=== PATIENT | male | born 1970 | race Caucasian/White ===

== ENCOUNTER 2022-04-13 03:27 | Emergency (ER) | payer MEDICAID, SELFPAY ==
[2022-04-13] VITALS (20 sets, daily range): BP systolic 126–157; BP diastolic 79–96; PULSE 73–99; RESP 8–21; TEMP 36.8–37; O2SAT 95–99
--- NOTE | 2022-04-13 03:30 | DI.CT_ITS ---
Exam(s) CT HEAD WO EXAM: CT HEAD WO CLINICAL HISTORY: seizure, head injury frontal scalp. TECHNIQUE: Imaging Protocol: Axial computed tomography images with coronal and sagittal reformatted images were created and reviewed COMPARISON: No exams were available for comparison FINDINGS: Ventricles and Extra axial spaces: Normal in size and morphology for the patient's age. Hemorrhage: None. Cerebral parenchyma: No acute territorial infarct. Midline shift: None. Brainstem/Cerebellum: Normal. Calvarium: Normal. Bilateral zygomatic arch depression fractures which appear old. Visualized Paranasal sinuses/Mastoids: Marked mucosal thickening with near complete opacification of the left maxillary sinus. There is mucosal thickening in the remaining visualized paranasal sinuses with sparing of the frontal sinuses. The mastoid air cells are clear. Soft Tissues: There is soft tissue swelling over the frontal bone. IMPRESSION: No acute intracranial process. RADIATION DOSE DELIVERED: 813.61mGy.cm Total DLP DATA REPOSITORY: All CT scans at this facility are submitted to the National Radiology Data Registry (NRDR) Dose Index Registry (DIR) with the [employer] ([employer]). RADIATION OPTIMIZATION: All CT scans at this facility use at least one of these dose optimization te chniques: automated exposure control; mA and/or kV adjustment per patient size (includes targeted exa ms where dose is matched to clinical indication); or iterative reconstruction.
--- NOTE | 2022-04-13 03:45 | ED.GENADUL_ITS ---
Discharge Plan Disposition Patient Disposition: HOME Condition: Improving Discharge Details Chief Complaint: DrugWithdr/MAT Clinical Impression: Head injury ED Provider: Arvind Munoz Home Meds and New Rx's Prescriptions: No Action buprenorphine-naloxone [Suboxone] 8-2 mg Tablet, Sublingual 2 tab SUBLINGUAL DAILY Discharge Instructions Instructions: Head Injury (ED) Additional Instructions: Please follow-up with primary care physician. Please return to the emergency department he develop worsening symptoms such as headache nausea vomiting symptoms withdrawal or recurrent seizures. Medical Decision Making 51-year-old male history of polysubstance abuse, alcohol abuse and prior opiate abuse, presents after 2 seizures today, prior history of alcohol withdrawal seizures, last drink earlier this evening, sustained superficial abrasion to frontal scalp, also endorses missing multiple doses of his Suboxone. Patient is alert and oriented moving all extremities, no focal deficits, normal speech, hemodynamically stable, no tremors or tachycardia however given prior history of alcohol withdrawal seizure must consider recurrent alcohol withdrawal seizure versus less likely epilepsy versus less likely opioid withdrawal, must also consider primary intoxication with mechanical fall, given multiple seizures in the course of the day as well as head trauma will obtain CT head to assess for intracranial hemorrhage edema or skull fracture, will also obtain basic labs, fluids benzodiazepine, will dose Suboxone here. Disposition pending reassessment. Patient Dors is he lives locally with his girlfriend has a safe place to stay. If patient is neurologically intact with negative work-up will be discharged home with resources 5: 10 patient verbally aggressive with staff. Demanding of nursing staff. Redirectable at bedside. Awaiting CT results for disposition. Patient is alert and oriented, clinically sober, no seizure activity in the department 6: 40 patient resting comfortably no acute distress no tremors no tachycardia, no diaphoresis, patient is clinically sober. Labs and imaging unremarkable. Chronic appearing facial injuries. Patient be discharged home. HPI General Date/Time Provider Initiated Documentation: 04/13/22 03:39 . HPI Narrative: 51-year-old male history of polysubstance abuse, history of prior alcohol withdrawal with alcohol withdrawal seizures, presents after having 2 seizures today the last of which occurred approximately 1 hour ago, fell from standing hitting his frontal scalp. Superficial abrasion to scalp hemostatic, patient does endorse drinking 2 beers this evening, also endorses missing several days of his Suboxone. Denies blood thinner use. Denies other injuries. Related Data Home Medications Medication Instructions Recorded Confirmed buprenorphine 8 mg-naloxone 2 mg 2 tab sublingual DAILY 04/13/22 04/13/22 sublingual tablet Allergies Allergy/AdvReac Type Severity Reaction Status Date / Time No Known Allergies Allergy Unverified 04/13/22 03:43 General Stated Complaint: DrugWithdr/MAT ADRIAN: 2 Review of Systems Narrative: Review of Systems Constitutional: negative Eyes: negative ENT: negative Cardiovascular: negative Respiratory: negative Gastrointestinal: negative : negative Musculoskeletal: negative Skin: Abrasion to scalp Neurologic: Seizure Psych: negative PFSH All Active Problems (Updated 04/13/22 @ 06:41 by Arvind Munoz MD) Head injury (Acute) Social History Smoking/Tobacco Use Status: Current every day Tobacco Type: cigarettes Smoking risk assessment performed?: Yes Alcohol Intake: current Alcohol Intake frequency: 3 or more drinks per day Drug use: Daily Substance use type: crack/cocaine Do you feel safe at home: Yes Do you feel safe in your relationship?: Yes Exam Narrative Exam Narrative: Physical Examination General: alert, awake, cooperative, resting comfortably, no acute distress HEENT: normocephalic, 6 cm superficial linear abrasion to frontal scalp hemostatic no foreign body not gaping; PERRL, EOM intact, conjunctiva normal; no nasal discharge; moist mucous membranes, oral and pharyngeal mucosa normal, tolerating secretions Neck: supple, trachea midline; full ROM Chest: normal to inspection Respiratory: normal respiratory effort, speaking in full sentences, clear to auscultation, no wheezing, rales or rhonchi Cardiac: regular rate, regular rhythm, S1S2 intact, no murmurs rubs or gallops GI: abdomen soft, non-tender, non-distended; no palpable mass or hepatosplenomegaly Skin: no lesions, rashes or trauma appreciated Neuro: AAOx3, normal speech, moving all extremities, 5/5 upper and lower extremity strength Extremities: No deformity Psych: Appropriate mood and affect Course Vital Signs Vital signs: Vital Signs Temperature 37 C 04/13/22 03:30 Pulse 77 04/13/22 03:30 Respiratory Rate 16 04/13/22 03:30 Blood Pressure 140/84 04/13/22 03:30 Pulse Oximetry 98 04/13/22 03:30 Temperature 37 C 04/13/22 03:30 Temperature Source Temporal Artery Scan 04/13/22 03:30 Pulse 77 04/13/22 03:30 Respiratory Rate 16 04/13/22 03:30 Respiratory Effort Non-Labored 04/13/22 03:30 Blood Pressure 140/84 04/13/22 03:30 Blood Pressure Position Supine 04/13/22 03:30 Pulse Oximetry 98 04/13/22 03:30 Oxygen Delivery Method Room Air 04/13/22 03:30 Oxygen Flow Rate 0 04/13/22 03:30 Pain Level 9 04/13/22 03:30 PAWSS Have you Been Recently Intoxicated or Drunk Within the Last 30 days?: Yes Have you Ever Experienced Previous Episodes of Alcohol Withdrawal?: Yes Have you ever Experienced Withdrawal Seizures?: Yes Have you ever Experienced Delirium Tremens(DT)s?: Yes Have you ever undergone Alcohol Rehabilitation Treatment (i.e, inpt ot outpatient treatment programs)?: Yes Have you ever Experienced Blackouts?: Yes Have you ever Combined Alcohol with other Downers within the last 90 days?: Yes Have you ever Combined Alcohol with any other Substance of Abuse during the last 90 days?: Yes Positive Blood Alcohol level on Presentation? [PCS.BAL]: Yes Evidence of Increased Autonomic Activity (i.e. HR>120, tremor, sweating, agitation, nausea)?: Yes Result: 10
[2022-04-13] MEDS: Normal Saline 1,000 ML 1000 ML IV (03:52)
[2022-04-13] MEDS: LORazepam 2 MG/ML VIAL 1 MG IVP ×2 (03:52→05:04)
[2022-04-13] MEDS: Buprenorphine/Naloxone 8 mg/2 mg FILM 1 EACH SL (03:52)
[2022-04-13 03:53] LABS: Abs Immature Grans 0.04 10^3/uL (0.0-0.06); Absolute Basophil Count 0.01 10^3/uL (0.0-0.2); Absolute Eosinophil Count 0.09 10^3/uL (0.0-0.7); Absolute Lymphocyte Count 1.81 10^3/uL (1.2-3.4); Absolute Monocyte Count 0.63 10^3/uL (0.1-0.8); Absolute Neutrophil Count 3.91 10^3/uL (1.2-6.7); Basophils % 0.2; Eosinophils % 1.4; HCT 38.3 % (40.0-50.0); HGB 12.9 g/dL (13.5-17.5); Immature Grans % 0.6; Lymphocytes % 27.9; MCH 30.6 pg (27.0-33.0); MCHC 33.7 % (32.0-36.0); MCV 91 fL (80-95); MPV 9.8 fL (8.0-11.0); Monocytes % 9.7; Neutrophils % 60.2; Platelet Count 205 10^3/uL (130-400); RBC 4.22 10^6/uL (4.36-5.78); RDW 13.6 % (11.8-14.1); RDW-SD 43.8 fL; WBC 6.49 10^3/uL (4.4-10.8)
[2022-04-13 04:13] LABS: ALT 283 U/L (16-63); AST 225 U/L (15-37); Alkaline Phosphatase 64 U/L (46-116); Anion Gap 11.7 mmol/L (3-11); BUN 10 mg/dL (7-18); Bilirubin, Total 0.2 mg/dL (0.2-1.0); CO2 30.3 mmol/L (21.0-32.0); CREATININE 0.8 mg/dL (0.70-1.30); Calcium 8.2 mg/dL (8.5-10.1); Chloride 100 mmol/L (98-107); Glucose 137 mg/dL (74-106); Potassium 3.1 mmol/L (3.5-5.1); Sodium 142 mmol/L (136-145); Total Protein 7.1 g/dL (6.4-8.2)
[2022-04-13] MEDS: Ondansetron 4 MG/2 ML VIAL (06:00)
--- NOTE | 2022-04-13 06:33 | DI.VRAD_ITS ---
PROCEDURE INFORMATION: Exam: CT Head Without Contrast Exam date and time: 04/13/2022 4:12 AM Age: 51 years old Clinical indication: Injury or trauma; Fall; Blunt trauma (contusions or hematomas); With loss of consciousness; Not specified; Injury date: 04/13/22; Injury details: Seizure, head injury frontal scalp TECHNIQUE: Imaging protocol: Computed tomography of the head without contrast. Radiation optimization: All CT scans at this facility use at least one of these dose optimization techniques: automated exposure control; mA and/or kV adjustment per patient size (includes targeted exams where dose is matched to clinical indication); or iterative reconstruction. COMPARISON: No relevant prior studies available. FINDINGS: Brain: Moderate volume loss No hemorrhage.Mild white matter disease. No mass effect. Cerebral ventricles: No ventriculomegaly. Paranasal sinuses: Mucosal thickening in the anterior paranasal sinuses greater on the left No fluid levels. Mastoid air cells: Visualized mastoid air cells are well aerated. Bones/joints: Age-indeterminate zygomatic arch and nasal bone fractures which may be chronic Soft tissues: Frontal scalp swelling IMPRESSION: No acute intracranial hemorrhage Age-indeterminate fractures as described Dictated and Authenticated by: Hal Irwin MD. Ordering:BEST Samuels MD
--- NOTE | 2022-04-13 07:05 | NUR.NOTE ---
Nursing Note: Referral given to Care Management for follow up wiith PCP for substance abuse, 1 to 2 weeks.
[2022-04-13] MEDS: Mylanta Suspension 30 ML CUP PO (07:18)
[2022-04-13] MEDS: Lidocaine 2% Viscous 15 ML CUP PO (07:18)
--- NOTE | 2022-04-13 10:26 | NUR.NOTE ---
Nursing Note: Spoke with [facility] Annabelle Rowley and she will touch base with the patient today.
== END 2022-04-13 07:15 | disposition home or self-care (01) ==
PROVIDERS: Emergency Provider Emergency Medicine; PCP Nurse Practitioner Family
DX: S00.01XA Abrasion of scalp, initial encounter (principal); F17.210 Nicotine dependence, cigarettes, uncomplicated; W18.30XA Fall on same level, unspecified, initial encounter; W22.8XXA Striking against or struck by other objects, initial encounter
CPT/HCPCS: 36415; 80053; 96361; 96374; 96375; 99284; 70450; 85025; J2060; J2405; J3490

== ENCOUNTER 2022-04-17 14:03 | Inpatient (IN) | payer MEDICAID, SELFPAY ==
[2022-04-17 14:12] VITALS: BP 131/90; PULSE 111; RESP 18; TEMP 37.2; O2SAT 98
--- NOTE | 2022-04-17 14:15 | RT.EKG_ITS ---
APPROVED REPORT Exam: Resting ECG Reason for Exam: seizure Patient Location: E HR:89 bpm ECG Measurements Heart Rate 89 AXIS RI 110 P -18 QRSd 88 QRS 68 QT 369 T 71 QTc 449 Conclusion Sinus rhythm...normal P axis, V-rate 60- 99. Sinus. Normal axis. No STEMI. I have reviewed and interpreted ECG and agree with software generated interpretation.
--- NOTE | 2022-04-17 14:37 | ED.GENADUL_ITS ---
Discharge Plan Disposition Patient Disposition: HOME Condition: Stable Discharge Details Chief Complaint: DrugWithdr/MAT Clinical Impression: Alcohol withdrawal seizure, Cerebral cavernous malformation, Homelessness Primary Care Provider: TEMI MANDUJANO ED Provider: Collette Mejía Home Meds and New Rx's Prescriptions: No Action buprenorphine-naloxone [Suboxone] 8-2 mg Tablet, Sublingual 2 tab SUBLINGUAL DAILY Medical Decision Making 1430 -- 51-year-old male with a history of alcohol abuse alcohol withdrawal seizures presents with report of seizure and fall down stairs today and request for detox. Patient was seen here 2 days ago for similar presentation and symptoms improved and given benzodiazepines and Suboxone here and was discharged home. Heart rate 110s. Patient appears disheveled but nontoxic. He demonstrates no signs of withdrawal including diaphoresis, tremors. He has a superficial laceration to his forehead but no other evidence of head trauma. No midline spinal tenderness. Moving all extremities. No focal deficits. Abdomen soft and nontender. Differential diagnosis includes seizure, electrolyte abnormality, dehydration, UTI. History and presentation does not appear consistent with PE, dissection. Will obtain screening labs, CT head and cervical spine, chest x-ray and give fluids, Ativan and a dose of his Suboxone and reassess. 1600 --labs and imaging are normal white blood cell count. Chronic elevation of LFTs. Troponin negative. Urinalysis negative for infection. UDS positive for cocaine, THC. Alcohol level 91. CT head discussed with vrad who notes: Hyperdense partially calcified lesion left temporal lobe suggestive of small cavernous malformation. It appears larger than on the patient's prior examination from 04/13/2022 suspicious for the presence of recent hemorrhage. There is no significant mass effect or shift. For further evaluation of this finding, MR correlation might be useful. [facility] consult initiated as there was report of fall today but unknown head injury. Images pushed to [facility] trauma and/or neurosurgery for review and consultation. Chest x-ray negative for acute disease and notes old clavicle fracture. Patient states he sustained a clavicle fracture 10 years ago and has no acute pain in this area. 1644 --patient states he feels he is shaking and is requesting a dose of Ativan. His vitals are within normal limits. He is not diaphoretic. We will give a dose of Ativan, IV Tylenol for headache. 1829 --discussed with [facility] neurosurgery who reviewed imaging. They had imaging on file from May [address] head from here from 04/13 and today and these findings appear stable. They do not think this is the cause of the seizures. Can be referred for follow-up with us. He has not cavernous malformation he needed elbow outpatient and for outpatient MRI. No other medication or acute recommendations. Patient reassessed and he states he still feels shaky. His hands are slightly tremulous. His heart rate has improved but remains in the 90s. Blood pressure slightly up trending to 145/90. Will admit for alcohol withdrawal. Unclear if he has actually had a seizure or if this is related to alcohol withdrawal. Patient had stated to the nurse that if he was discharged he would take a bottle of pills to kill myself . This was discussed with patient and he says he is homeless so he cannot be discharged. I feel that patient needs observation overnight to continue to monitor for potential alcohol withdrawal before evaluation by mental health. Case discussed with Dr. Mauricio who accepts patient for admission. Medical Records Medical records reviewed: Yes I reviewed the patient's medical records. Imaging Data Radiologic Study: Radiologist's impression: CT Head Without Contrast Exam date and time: 04/17/2022 3:29 PM Age: 51 years old Clinical indication: Other: Seizure, fall down stairs, R/O intracranial injury FX TECHNIQUE: Imaging protocol: Computed tomography of the head without contrast. Radiation optimization: All CT scans at this facility use at least one of these dose optimization techniques: automated exposure control; mA and/or kV adjustment per patient size (includes targeted exams where dose is matched to clinical indication); or iterative reconstruction. COMPARISON: CT HEAD WO 04/13/2022 4:12 AM FINDINGS: Brain: There is a small hyperdense partially calcified lesion centered in the left temporal lobe also seen on the patient's prior examination from 04/13/2022. It appears slightly larger on the current examination, now measuring approximately 8 mm in maximum diameter as measured on sagittal reformatted image 22 and approximately 8-9 mm on series 3, image 28. The CT appearance is suggestive of a cavernous malformation. The slight increase in size is suspicious for minimal recent/acute hemorrhage. There is no significant mass effect or shift. No other hemorrhage or hemorrhagic lesion is identified. There is no evidence of a cortical or major vascular territory infarct. There are no abnormal extra-axial collections identified. Cerebral ventricles: No significant ventricular enlargement. Paranasal sinuses: There is sinus mucoperiosteal thickening seen within the left maxillary antrum also previously noted. Mild sinus mucoperiosteal thickening is seen elsewhere. Mastoid air cells: There is no significant mastoid or middle ear opacification Bones/joints:? No acute calvarial fracture Soft tissues: No significant subcutaneous abnormality Vasculature:? No hyperdense intravascular thrombus Other findings: Orbits are unchanged IMPRESSION: Hyperdense partially calcified lesion left temporal lobe suggestive of small cavernous malformation. It appears larger than on the patient's prior examination from 04/13/2022 suspicious for the presence of recent hemorrhage. There is no significant mass effect or shift. For further evaluation of this finding, MR correlation might be useful. CT Cervical Spine Without Contrast Exam date and time: 04/17/2022 3:29 PM Age: 51 years old Clinical indication: Other: Seizure, fall down stairs, R/O intracranial injury FX TECHNIQUE: Imaging protocol: Computed tomography of the cervical spine without contrast. Radiation optimization: All CT scans at this facility use at least one of these dose optimization techniques: automated exposure control; mA and/or kV adjustment per patient size (includes targeted exams where dose is matched to clinical indication); or iterative reconstruction. COMPARISON: CT HEAD WO 04/13/2022 4:12 AM FINDINGS: Bones/joints: Bony mineralization is within normal limits. There is straightening, mild reversal of the cervical lordosis which may be positional or due to spasm. 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 There is no evidence of an acute fracture in the cervical spine. There is no decrease of vertebral body height. There is no acute or destructive bony abnormality. Discs/Spinal canal/Neural foramina: There is disc space narrowing in the cervical spine most prominent at C5-C6. There are disc osteophyte complexes spondylitic changes of the endplates, uncovertebral and facet arthropathy. There is mild narrowing of the canal at C5-C6. There is foraminal narrowing also most prominent at C5-C6 slightly greater on the right than the left Lungs: No significant airspace consolidation is identified at the lung apices Soft tissues: There is no evidence of a discrete soft tissue mass in the neck. IMPRESSION: No acute fracture. XR Chest Exam date and time: 04/17/2022 3:40 PM Age: 51 years old Clinical indication: Other: Seizure, R/O acute disease TECHNIQUE: Imaging protocol: Radiologic exam of the chest. Views: 2 views. COMPARISON: CT HEAD CERVICAL SPINE WO 04/17/2022 3:29 PM FINDINGS: Lungs: Hyperinflation. No focal consolidation. No focal consolidation. Normal pulmonary vascularity. Pleural spaces: Unremarkable. No pleural effusion. No pneumothorax. Heart/Mediastinum: Top-normal size cardiac silhouette. Vasculature: Tortuous atheromatous aorta. Bones/joints: Displaced mid to distal right clavicular fracture, partially included in field of view, non acute appearing. IMPRESSION: 1. Displaced mid to distal right clavicular fracture, partially included in field of view, non-acute appearing. Correlate with physical examination and history. 2. No focal consolidation or CHF. Lab Data Lab results reviewed: Yes I reviewed the patient's lab results. Labs: Laboratory Tests Range/Units 04/17/22 04/17/22 04/17/22 14:45 14:45 16:10 WBC (4.4-10.8) 10^3/uL 4.93 RBC (4.36-5.78) 10^6/uL 4.62 Hgb (13.5-17.5) g/dL 14.4 Hct (40.0-50.0) % 42.4 MCV (80-95) fL 92 MCH (27.0-33.0) pg 31.2 MCHC (32.0-36.0) % 34.0 RDW (11.8-14.1) % 14.1 Plt Count (130-400) 10^3/uL 246 MPV (8.0-11.0) fL 10.0 Immature Gran % 0.8 Neutrophils % 67.8 Lymphocytes % 21.5 Monocytes % 8.9 Eosinophils % 0.8 Basophils % 0.2 Nucleated RBC % (0.0-0.3) % 0.0 Absolute Neutrophils (1.2-6.7) 10^3/uL 3.34 Absolute Lymphocytes (1.2-3.4) 10^3/uL 1.06 L Absolute Monocytes (0.1-0.8) 10^3/uL 0.44 Absolute Eosinophils (0.0-0.7) 10^3/uL 0.04 Absolute Basophils (0.0-0.2) 10^3/uL 0.01 Sodium (136-145) mmol/L 139 Potassium (3.5-5.1) mmol/L 3.9 Chloride (98-107) mmol/L 103 Carbon Dioxide (21.0-32.0) mmol/L 23.7 Anion Gap (3-11) mmol/L 12.3 H BUN (7-18) mg/dL 9 Creatinine (0.70-1.30) mg/dL 0.9 Estimated GFR/1.73 m2 (mL/min/1.73m2) >= 60.00 Glucose (74-106) mg/dL 108 H Calcium (8.5-10.1) mg/dL 8.7 Magnesium (1.8-2.4) mg/dL 2.2 Total Bilirubin (0.2-1.0) mg/dL 0.4 AST (15-37) U/L 130 H ALT (16-63) U/L 304 H Alkaline Phosphatase (46-116) U/L 69 Troponin I (<or=60) ng/L < 50 Total Protein (6.4-8.2) g/dL 7.7 Albumin (3.4-5.0) g/dL 3.4 Urine Color (Yellow) Yellow Urine Clarity (Clear) Clear Urine pH (5-8) 8.5 H Ur Specific [place] (1.005-1.025) 1.020 Urine Protein (Negative) mg/dL Negative Urine Ketones (Negative) mg/dL Trace H Urine Blood (Negative) Negative Urine Nitrite (Negative) Negative Urine Bilirubin (Negative) Negative Urine Urobilinogen (Up TO 0.2) EU/dL 1.0 H Ur Leukocyte Esterase (Negative) Negative Urine Glucose (Negative) mg/dL Negative Urine Opiates Screen (Negative) Urine Methadone Screen (Negative) Ur Barbiturates Screen (Negative) Ur Tricyclics Screen (Negative) Ur Amphetamines Screen (Negative) U Benzodiazepines Scrn (Negative) Urine Cocaine Screen (Negative) Ur THC Screen (Negative) Ethyl Alcohol (<10) mg/dL 91.8 H COVID-19 Source SARS-CoV-2 (PCR) (Negative) Range/Units 04/17/22 04/17/22 16:10 17:27 WBC (4.4-10.8) 10^3/uL RBC (4.36-5.78) 10^6/uL Hgb (13.5-17.5) g/dL Hct (40.0-50.0) % MCV (80-95) fL MCH (27.0-33.0) pg MCHC (32.0-36.0) % RDW (11.8-14.1) % Plt Count (130-400) 10^3/uL MPV (8.0-11.0) fL Immature Gran % Neutrophils % Lymphocytes % Monocytes % Eosinophils % Basophils % Nucleated RBC % (0.0-0.3) % Absolute Neutrophils (1.2-6.7) 10^3/uL Absolute Lymphocytes (1.2-3.4) 10^3/uL Absolute Monocytes (0.1-0.8) 10^3/uL Absolute Eosinophils (0.0-0.7) 10^3/uL Absolute Basophils (0.0-0.2) 10^3/uL Sodium (136-145) mmol/L Potassium (3.5-5.1) mmol/L Chloride (98-107) mmol/L Carbon Dioxide (21.0-32.0) mmol/L Anion Gap (3-11) mmol/L BUN (7-18) mg/dL Creatinine (0.70-1.30) mg/dL Estimated GFR/1.73 m2 (mL/min/1.73m2) Glucose (74-106) mg/dL Calcium (8.5-10.1) mg/dL Magnesium (1.8-2.4) mg/dL Total Bilirubin (0.2-1.0) mg/dL AST (15-37) U/L ALT (16-63) U/L Alkaline Phosphatase (46-116) U/L Troponin I (<or=60) ng/L Total Protein (6.4-8.2) g/dL Albumin (3.4-5.0) g/dL Urine Color (Yellow) Urine Clarity (Clear) Urine pH (5-8) Ur Specific [place] (1.005-1.025) Urine Protein (Negative) mg/dL Urine Ketones (Negative) mg/dL Urine Blood (Negative) Urine Nitrite (Negative) Urine Bilirubin (Negative) Urine Urobilinogen (Up TO 0.2) EU/dL Ur Leukocyte Esterase (Negative) Urine Glucose (Negative) mg/dL Urine Opiates Screen (Negative) Negative Urine Methadone Screen (Negative) Negative Ur Barbiturates Screen (Negative) Negative Ur Tricyclics Screen (Negative) Negative Ur Amphetamines Screen (Negative) Negative U Benzodiazepines Scrn (Negative) Negative Urine Cocaine Screen (Negative) Positive A Ur THC Screen (Negative) Positive A Ethyl Alcohol (<10) mg/dL COVID-19 Source Nasal/Nares SARS-CoV-2 (PCR) (Negative) Negative ECG Data Attestation: I personally reviewed and interpreted this ECG (s) as follows: Interpretation: rate of 89, sinus, no stemi. HPI General Mode of arrival: ambulatory . Date/Time Provider Initiated Documentation: 04/17/22 14:14 . Limitations to Documentation: no limitations . Information obtained by: patient . HPI Narrative: Patient is a 51-year-old male with a history of alcohol abuse and alcohol withdrawal seizures who presents with report of seizure and fall downstairs today. Patient states his last alcohol drink was yesterday. He states he usually drinks 2 bottles of wine daily but had 3 beers yesterday. Patient states he would like to stop drinking alcohol and would like to go to detox. He also states he has not had his Suboxone since he was here for a seizure in the emergency department 2 days ago. Patient states his Suboxone will not be ready for pickup until [employer] opens on Tuesday. He states he has been on Suboxone for the past 5 years for history of IV opiate use. He states today he was walking at home when he became dizzy and had seizure-like activity which lasted approximately 2 minutes. He states he fell down the stairs but denies any injury at that time. He currently denies any headache, blurry vision, chest pain, shortness of breath, abdominal pain or urinary symptoms. He denies any other new Related Data Home Medications Medication Instructions Recorded Confirmed buprenorphine 8 mg-naloxone 2 mg 2 tab sublingual DAILY 04/13/22 04/17/22 sublingual tablet Allergies Allergy/AdvReac Type Severity Reaction Status Date / Time No Known Allergies Allergy Unverified 04/17/22 14:15 General Stated Complaint: DrugWithdr/MAT ADRIAN: 3 Review of Systems All systems reviewed & are unremarkable except as noted in HPI and below Constitutional Constitutional: Denies chills, Denies excessive sweating, Denies fatigue, Denies fever(s), Denies weakness and Denies weight loss Eyes Eyes: Reports system reviewed and no additional complaints, except as documented and Denies blurry vision ENT Ears, Nose, Mouth, and Throat: Denies vertigo, Denies dizziness, Denies otalgia, Denies nasal congestion, Denies sore throat and Denies throat swelling Cardiovascular Cardiovascular: Denies chest pain, Denies syncope, Denies rapid heart rate and Denies dyspnea Respiratory Respiratory: Denies chest congestion, Denies cough, Denies pain on inspiration and Denies dyspnea Gastrointestinal Gastrointestinal: Denies abdominal pain, Denies diarrhea and Denies vomiting Genitourinary Genitourinary: Denies hematuria, Denies dysuria and Denies flank pain Musculoskeletal Musculoskeletal: Denies back pain and Denies joint swelling Integumentary/Breasts Skin/Breast: Denies lesions and Denies rash Neurologic Neurologic: Denies behavioral changes, Denies confusion, Denies vertigo, Denies dizziness, Denies syncope, Denies localized weakness, Reports seizure-like activity and Denies weakness Psychiatric Psychiatric: Denies behavioral changes, Denies confusion and Denies depression Endocrine Endocrine: Denies excessive sweating and Denies fatigue Hematologic/Lymphatic Hematologic/Lymphatic: Denies easy bruising and Denies lymphadenopathy Allergic/Immunologic Allergic/Immunologic: Denies throat swelling PFSH All Active Problems (Updated 04/17/22 @ 19:15 by Collette Mejía DO) Alcohol withdrawal seizure (Acute) Cerebral cavernous malformation (Acute) Homelessness (Acute) Head injury (Acute) Medical History (Updated 04/17/22 @ 19:15 by Collette Mejía DO) Alcohol abuse Alcohol withdrawal seizure Social History Smoking/Tobacco Use Status: Current every day Tobacco Type: cigarettes Smoking risk assessment performed?: Yes Alcohol Intake: current Alcohol Intake frequency: 3 or more drinks per day Drug use: Never Substance use type: crack/cocaine Do you feel safe at home: Yes Do you feel safe in your relationship?: Yes Exam Const General: cooperative and disheveled Orientation: alert, awake and oriented x3 HENMT Head: normal to inspection Ears: hearing grossly normal bilaterally and external ears normal General nose exam: external nose normal Face and sinus: normal facial exam Mouth: oral mucosae normal Teeth and gingiva: dentition normal Throat: posterior oropharynx normal Eyes General: appearance normal, both eyes and all related structures Eyelids: eyelids normal Pupils: PERRL EOM: EOM intact bilaterally Neck Neck: normal visual inspection Lymphatic: no lymphadenopathy noted Chest Chest: normal inspection of the chest Resp Effort & Inspection: normal respiratory effort and able to speak in complete sentences Auscultation: clear to auscultation bilaterally Cardio Rate: regular rate Rhythm: regular rhythm GI Inspection: normal to inspection Palpation: soft, not firm, no guarding, no hepatosplenomegaly, no masses and nontender Auscultation: normal bowel sounds Back/Spine/Pelvis Back: no CVA tenderness Skin General skin exam: no rashes or lesions noted Neuro General: patient alert and patient awake Cognition: normal cognition Speech: speech normal Gait: normal gait Motor: muscle tone normal throughout Sensory Exam: no sensory deficits noted Extrem General: normal to inspection, full ROM and capillary refill normal Psych Appearance: grossly normal Mental Status: mental status grossly normal Speech and Movement: speech and movement normal Affect: normal affect Thought Process: normal Course Vital Signs Vital signs: Vital Signs Temperature 99.0 F 04/17/22 14:12 Pulse 111 H 04/17/22 14:12 Respiratory Rate 18 04/17/22 14:12 Blood Pressure 131/90 04/17/22 14:12 Pulse Oximetry 98 04/17/22 14:12 Temperature 99.0 F 04/17/22 14:12 Temperature Source Temporal Artery Scan 04/17/22 14:12 Pulse 111 H 04/17/22 14:12 Respiratory Rate 18 04/17/22 14:12 Respiratory Effort 04/17/22 14:15 Blood Pressure 131/90 04/17/22 14:12 Blood Pressure Position Sitting 04/17/22 14:12 Pulse Oximetry 98 04/17/22 14:12 Oxygen Delivery Method Room Air 04/17/22 14:12 Oxygen Flow Rate 0 04/17/22 14:12 Pain Level 10 04/17/22 14:12 PAWSS Have you Ever Experienced Previous Episodes of Alcohol Withdrawal?: Yes Have you ever Experienced Withdrawal Seizures?: Yes Have you ever Experienced Delirium Tremens(DT)s?: Yes Have you ever undergone Alcohol Rehabilitation Treatment (i.e, inpt ot outpatient treatment programs)?: No Have you ever Experienced Blackouts?: Yes Have you ever Combined Alcohol with other Downers within the last 90 days?: No Have you ever Combined Alcohol with any other Substance of Abuse during the last 90 days?: No Evidence of Increased Autonomic Activity (i.e. HR>120, tremor, sweating, agitation, nausea)?: Yes Result: 5
--- NOTE | 2022-04-17 14:45 | DI.RAD_ITS ---
Exam(s) XR CHEST 2V PA LATERAL EXAM: XR CHEST 2V PA LATERAL CLINICAL HISTORY: seizure, r/o acute disease. TECHNIQUE: 2D digital imaging was performed. COMPARISON: No exams were available for comparison FINDINGS: 2 views: Heart size is normal. The mediastinum is not widened. Lungs are clear. No infiltrates nor pleural effusions. Displaced right midshaft clavicle fracture noted IMPRESSION: No acute pulmonary findings. Displaced fracture right midshaft clavicle. Probably not acute DATA REPOSITORY: RADIATION DOSE DELIVERED:
--- NOTE | 2022-04-17 14:45 | DI.CT_ITS ---
Exam(s) CT HEAD CERVICAL SPINE WO EXAM: CT HEAD CERVICAL SPINE WO CLINICAL HISTORY: seizure, fall down stairs, r/o intracranial inj,fx. TECHNIQUE: Imaging Protocol: Axial computed tomography images with coronal and sagittal reformatted images were created and reviewed COMPARISON: CT CT HEAD WO from 04/13/2022 FINDINGS: BRAIN: No skull fractures. There is mucosal thickening and fluid in the left maxillary sinus. Remainder of the paranasal sinuses are clear as are the mastoid air cells. On the left side there is a partially calcified left temporal lobe lesion noted, seen on the prior st udy although slightly larger on the present study. The CT appearance is that of a probable cavernous malformation and slight increase in size is suspicious for minimal recent acute hemorrhage. There i s no significant mass effect. No shift of midline structures. No other lesion is identified. No ev idence of cortical infarct. No extra-axial fluid collections. Ventricles are not enlarged or shifted. CERVICAL SPINE: There is no evidence of fracture nor listhesis. No significant prevertebral soft tissue swelling. F acet arthropathy noted. No facet malalignment. Disc space narrowing at C5-6 noted. Also bilateral Luschka joint osteophytes at this level. No Lusc hka joint osteophytes at C6-7. There is no significant facet joint malalignment. No significant osseous lesions evident. IMPRESSION: There is a hyperdense partially calcified lesion left temporal lobe suggestive of a small cavernous m alformation, this appearing slightly larger than on the prior exam of 04/13/2022. Suspicious for pre sence of recent hemorrhage therein.. No associated new mass or shift. Follow-up MRI recommended. No evidence of cervical spine fracture, malalignment, nor acute compromise of the cervical spinal can al. RADIATION DOSE DELIVERED: 1,630.41mGy.cm Total DLP DATA REPOSITORY: All CT scans at this facility are submitted to the National Radiology Data Registry (NRDR) Dose Index Registry (DIR) with the [employer] ([employer]). RADIATION OPTIMIZATION: All CT scans at this facility use at least one of these dose optimization te chniques: automated exposure control; mA and/or kV adjustment per patient size (includes targeted exa ms where dose is matched to clinical indication); or iterative reconstruction.
[2022-04-17 15:03] LABS: Abs Immature Grans 0.04 10^3/uL (0.0-0.06); Absolute Basophil Count 0.01 10^3/uL (0.0-0.2); Absolute Eosinophil Count 0.04 10^3/uL (0.0-0.7); Absolute Lymphocyte Count 1.06 10^3/uL (1.2-3.4); Absolute Monocyte Count 0.44 10^3/uL (0.1-0.8); Absolute Neutrophil Count 3.34 10^3/uL (1.2-6.7); Basophils % 0.2; Eosinophils % 0.8; HCT 42.4 % (40.0-50.0); HGB 14.4 g/dL (13.5-17.5); Immature Grans % 0.8; Lymphocytes % 21.5; MCH 31.2 pg (27.0-33.0); MCV 92 fL (80-95); Monocytes % 8.9; Neutrophils % 67.8; Platelet Count 246 10^3/uL (130-400); RBC 4.62 10^6/uL (4.36-5.78); RDW 14.1 % (11.8-14.1); RDW-SD 46.5 fL; WBC 4.93 10^3/uL (4.4-10.8)
[2022-04-17] MEDS: LORazepam 20 MG/10 ML VIAL IVP (15:14)
[2022-04-17] MEDS: Buprenorphine/Naloxone 8 mg/2 mg FILM 2 EACH SL (15:14)
[2022-04-17] MEDS: Normal Saline 1,000 ML 1000 ML IV (15:15)
[2022-04-17 15:22] LABS: ALT 304 U/L (16-63); AST 130 U/L (15-37); Albumin 3.4 g/dL (3.4-5.0); Alkaline Phosphatase 69 U/L (46-116); Anion Gap 12.3 mmol/L (3-11); BUN 9 mg/dL (7-18); Bilirubin, Total 0.4 mg/dL (0.2-1.0); CO2 23.7 mmol/L (21.0-32.0); CREATININE 0.9 mg/dL (0.70-1.30); Calcium 8.7 mg/dL (8.5-10.1); Chloride 103 mmol/L (98-107); ETHANOL BLOOD 91.8 mg/dL (<10); Glucose 108 mg/dL (74-106); Magnesium 2.2 mg/dL (1.8-2.4); Potassium 3.9 mmol/L (3.5-5.1); Sodium 139 mmol/L (136-145); Total Protein 7.7 g/dL (6.4-8.2); Troponin I < 50 ng/L (<or=60)
--- NOTE | 2022-04-17 16:08 | DI.VRAD_ITS ---
Addendum created by Echo Gonsales MD on 04/17/2022 4:14:24 PM EDT: THIS REPORT CONTAINS FINDINGS THAT MAY BE CRITICAL TO PATIENT CARE. The findings were verbally communicated via telephone conference with aparna houston at 4:14 PM EDT on 04/17/2022. The findings were acknowledged and understood. Initial report created on 04/17/2022 4:08:25 PM EDT: PROCEDURE INFORMATION: Exam: CT Head Without Contrast Exam date and time: 04/17/2022 3:29 PM Age: 51 years old Clinical indication: Other: Seizure, fall down stairs, R/O intracranial injury FX TECHNIQUE: Imaging protocol: Computed tomography of the head without contrast. Radiation optimization: All CT scans at this facility use at least one of these dose optimization techniques: automated exposure control; mA and/or kV adjustment per patient size (includes targeted exams where dose is matched to clinical indication); or iterative reconstruction. COMPARISON: CT HEAD WO 04/13/2022 4:12 AM FINDINGS: Brain: There is a small hyperdense partially calcified lesion centered in the left temporal lobe also seen on the patient's prior examination from 04/13/2022. It appears slightly larger on the current examination, now measuring approximately 8 mm in maximum diameter as measured on sagittal reformatted image 22 and approximately 8-9 mm on series 3, image 28. The CT appearance is suggestive of a cavernous malformation. The slight increase in size is suspicious for minimal recent/acute hemorrhage. There is no significant mass effect or shift. No other hemorrhage or hemorrhagic lesion is identified. There is no evidence of a cortical or major vascular territory infarct. There are no abnormal extra-axial collections identified. Cerebral ventricles: No significant ventricular enlargement. Paranasal sinuses: There is sinus mucoperiosteal thickening seen within the left maxillary antrum also previously noted. Mild sinus mucoperiosteal thickening is seen elsewhere. Mastoid air cells: There is no significant mastoid or middle ear opacification Bones/joints: No acute calvarial fracture Soft tissues: No significant subcutaneous abnormality Vasculature: No hyperdense intravascular thrombus Other findings: Orbits are unchanged IMPRESSION: Hyperdense partially calcified lesion left temporal lobe suggestive of small cavernous malformation. It appears larger than on the patient's prior examination from 04/13/2022 suspicious for the presence of recent hemorrhage. There is no significant mass effect or shift. For further evaluation of this finding, MR correlation might be useful. PROCEDURE INFORMATION: Exam: CT Cervical Spine Without Contrast Exam date and time: 04/17/2022 3:29 PM Age: 51 years old Clinical indication: Other: Seizure, fall down stairs, R/O intracranial injury FX TECHNIQUE: Imaging protocol: Computed tomography of the cervical spine without contrast. Radiation optimization: All CT scans at this facility use at least one of these dose optimization techniques: automated exposure control; mA and/or kV adjustment per patient size (includes targeted exams where dose is matched to clinical indication); or iterative reconstruction. COMPARISON: CT HEAD WO 04/13/2022 4:12 AM FINDINGS: Bones/joints: Bony mineralization is within normal limits. There is straightening, mild reversal of the cervical lordosis which may be positional or due to spasm. 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 There is no evidence of an acute fracture in the cervical spine. There is no decrease of vertebral body height. There is no acute or destructive bony abnormality. Discs/Spinal canal/Neural foramina: There is disc space narrowing in the cervical spine most prominent at C5-C6. There are disc osteophyte complexes spondylitic changes of the endplates, uncovertebral and facet arthropathy. There is mild narrowing of the canal at C5-C6. There is foraminal narrowing also most prominent at C5-C6 slightly greater on the right than the left Lungs: No significant airspace consolidation is identified at the lung apices Soft tissues: There is no evidence of a discrete soft tissue mass in the neck. IMPRESSION: No acute fracture. Dictated and Authenticated by: Echo Gonsales MD. Ordering:DANA Murdock MD
--- NOTE | 2022-04-17 16:12 | DI.VRAD_ITS ---
PROCEDURE INFORMATION: Exam: XR Chest Exam date and time: 04/17/2022 3:40 PM Age: 51 years old Clinical indication: Other: Seizure, R/O acute disease TECHNIQUE: Imaging protocol: Radiologic exam of the chest. Views: 2 views. COMPARISON: CT HEAD CERVICAL SPINE WO 04/17/2022 3:29 PM FINDINGS: Lungs: Hyperinflation. No focal consolidation. No focal consolidation. Normal pulmonary vascularity. Pleural spaces: Unremarkable. No pleural effusion. No pneumothorax. Heart/Mediastinum: Top-normal size cardiac silhouette. Vasculature: Tortuous atheromatous aorta. Bones/joints: Displaced mid to distal right clavicular fracture, partially included in field of view, non acute appearing. IMPRESSION: 1. Displaced mid to distal right clavicular fracture, partially included in field of view, non-acute appearing. Correlate with physical examination and history. 2. No focal consolidation or CHF. Dictated and Authenticated by: Courtney Puga MD. Ordering:DANA Murdock MD
[2022-04-17 16:27] LABS: Bilirubin Negative (Negative); Blood Negative (Negative); Clarity Clear (Clear); Glucose Negative (Negative); Ketones Trace mg/dL (Negative); Leukocyte Esterase Negative (Negative); Nitrite Negative (Negative); pH 8.5 (5-8)
[2022-04-17 16:42] LABS: *AMPHETAMINES SCREEN URINE Negative (Negative); *BARBITURATES SCREEN URINE Negative (Negative); *BENZODIAZEPINES SCREEN URINE Negative (Negative); Cannabinoids THC Positive (Negative); Cocaine Screen,Urine Positive (Negative); METHADONE URINE SCREEN Negative (Negative); OPIATES URINE SCREEN Negative (Negative)
[2022-04-17 16:43] LABS: Tricyclic Antidepressants Negative (Negative)
[2022-04-17] MEDS: LORazepam 2 MG/ML VIAL 0.5 MG IVP (17:00)
[2022-04-17] MEDS: ACETAMINOPHEN 1,000 MG/100 ML BTL 400 MG IVPB (17:10)
[2022-04-17] MEDS: MAGNESIUM SULFATE 8.12 MEQ, MULTIVITAMIN 10 ML, THIAMINE 100 MG, FOLIC ACID 1 MG in Nor... 168.867 MG IV (17:16)
[2022-04-17 17:31] LABS: Source Nasal/Nares
[2022-04-17 18:23] LABS: COVID-19 PCR Negative (Negative)
--- NOTE | 2022-04-17 19:08 | HPE_ITS ---
Date of service: 04/17/22 Time of Service: 19:08 Assessment and Plan Assessment and plan (1) Alcohol abuse: Start date: 04/17/22 Assessment and plan: This is a 51-year-old gentleman who has chronic alcoholism as a problem as well as polysubstance abuse on Suboxone recently off meds and drinking having been kicked out of his sober home locally and [place], [place] where he had moved from [place], [place] to stop drinking. He is on Suboxone and appears to have missed some of these doses as well. He appeared clear to go home but threatened suicide with overdose of his medications if sent home therefore he will need to see mental health for clearance prior to discharge with the patient stating that he would voluntarily go into rehab and psychiatric inpatient care for evaluation and treatment. He will be on CIWA protocol to avoid alcohol withdrawal seizures which are reported and have happened in the past. No seizures were witnessed in the hospital. He is a full code. He will be given Nicorette gum for nicotine withdrawal. His Suboxone will be maintained. (2) Alcohol withdrawal seizure: Start date: 04/17/22 Status: Acute Assessment and plan: Reported by patient with fall prior to admission with no injury noted. No ev idence of seizure activity during his hospital evaluation but patient will be placed on CIWA protocol and seizure precautions.. (3) Suicidal ideation: Start date: 04/17/22 Status: Acute Assessment and plan: When patient was being possibly discharged home he said that he would take all of his medications to commit suicide and stated that he is actively having suicidal ideation because of his homelessness and recurrent substance abuse with alcohol and drugs. He is willing to have voluntary inpatient treatment for both. Once medically cleared mental health should be seeing the patient for evaluation for inpatient care. (4) Polysubstance abuse: Status: Chronic Assessment and plan: On Suboxone and actively using cocaine while drinking. Patient will be placed on Suboxone and monitored for complications of his polysubstance abuse though alcohol withdrawal is the most impending problematic condition. Long-term he needs continued rehabilitation and cessation of polysubstance abuse and alcohol. Prognosis poor for change. (5) Head injury: Start date: 04/17/22 Status: Acute Assessment and plan: No obvious injury from fall reported by physical exam or imaging. Patient does have chronic cerebral cavernous malformation which appears stable. Monitor clinically and should follow-up with neurosurgery and neurology long-term. (6) Cerebral cavernous malformation: Status: Chronic Assessment and plan: Reported as anatomically stable though there may be some slight changes suggesting hemorrhage by recent imaging and [facility] neurology and neurosurgery recommends follow-up as an outpatient with no acute intervention recommended. Patient is having no focal neurological findings. (7) Homelessness: Status: Chronic Assessment and plan: Patient states that he cannot return home to his mother's place and [place], [place] and he has just been kicked out of a sober home locally and [place], [place]. 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 History of Present Illness History of Present Illness Chief Complaint: Seizure with fall secondary to alcohol withdrawal Narrative: This is a 51-year-old male patient who reported to the ED complaining of alcohol seizures from withdrawal and falling down stairs. He had no obvious injury and imaging did not show a stable small cavernous malformation over his left tempora l lobe which may have had minimal hemorrhage compared to previous imaging dating back to 2011 which [facility] neurology had for review. The patient was not having active withdrawal symptoms except for slight tachycardia and possible slight tremulousness in the ED receiving Ativan. He was to be discharged home but states that he would take all of his pills if he was sent home and had suicidal ideation. He is originally from [place], [place] but has spent time in [place] and came to this part [facility] to a sober house having been now kicked out of that residence because of returning to drinking. He did have an alcohol level measured in the ED. When I saw the patient he was diaphoretic with a flattened affect but awake and not tremulous. He still was reporting suicidal ideation and did want to see mental health once medically cleared. The patient has a chaotic life on Suboxone and polysubstance abuse with poor insight. He has had previous falls with old clavicular fracture seen on imaging but no acute injuries with a stable cavernous lesion as mentioned in his left temporal lobe. Pertinent review of systems otherwise unrevealing except for patient wanting nicotine gum being a smoker and having nicotine withdrawal when in the hospital. Review of Systems Narrative: 13 point review of systems otherwise unrevealing or stable. Patient is a poor historian. [facility] All Active Problems (Updated 04/18/22 @ 13:28 by Matthew Mauricio) Suicidal ideation (Acute) Polysubstance abuse (Chronic) Alcohol withdrawal seizure (Acute) Cerebral cavernous malformation (Chronic) Homelessness (Chronic) Head injury (Acute) Medical History (Updated 04/18/22 @ 13:28 by Matthew Mauricio) Alcohol abuse Alcohol withdrawal seizure Social History Smoking/Tobacco Use Status: Current every day Tobacco Type: cigarettes Smoking risk assessment performed?: Yes Alcohol Intake: current Alcohol Intake frequency: 3 or more drinks per day Drug use: Never Substance use type: crack/cocaine Do you feel safe at home: Yes Do you feel safe in your relationship?: Yes Meds Allergies and Home Medications Allergies Allergy/AdvReac Type Severity Reaction Status Date / Time No Known Allergies Allergy Unverified 04/17/22 14:15 Home Medications Medication Instructions Recorded Confirmed Type buprenorphine 8 mg-naloxone 2 mg 2 tab sublingual DAILY 04/13/22 04/17/22 History sublingual tablet Exam Narrative Exam Narrative: General: Patient appears older than stated age, slightly anxious with flattened affect and poor eye contact. He is alert and oriented at least to person place. He gives a vague history appearing to avoid topics. HEENT: Normocephalic, face atraumatic, eyes with pupils equal and reactive to light symmetrically, extraocular movement intact and sclera anicteric. Oropharynx with dry mucosa and poor dentition. Neck: Supple without JVD. Lungs: Bronchovesicular breath sounds diffusely with fair aeration and no focalizing rales or rhonchi. No expiratory wheeze. Back: Stooped posture without CVA tenderness. Heart: Regular rate and rhythm with no appreciable murmur or gallop. Chest: Symmetric movement with out tenderness to palpation. Abdomen: Obese contour, soft and nontender to palpation with no palpable hepatosplenomegaly. Genitalia/rectal: Exam deferred. Extremities: Without clubbing, cyanosis or pitting edema. Peripheral pulses intact. Skin: Diaphoretic, normal color and warm. No obvious bruising or lesions noted. Neuro: Cranial nerves II through XII gross intact, no focalizing motor deficits. Psych: Flattened affect with depressed mood and slow monotonous tone to voice with poor history and patient appearing to avoid certain topics. No abnormal thought processes. Remote and recent memory appear to be grossly intact with patient being a poor historian. Results Imaging Imaging Studies: CT HEAD ? CERVICAL SPINE WO EXAM: ? CT HEAD ? CERVICAL SPINE WO CLINICAL HISTORY: ? seizure, fall down stairs, r/o intracranial inj,fx. ? TECHNIQUE:? Imaging Protocol: Axial computed tomography images with coronal and sagittal reformatted images were created and reviewed COMPARISON:? CT CT HEAD WO from 04/13/2022 FINDINGS: BRAIN: No skull fractures.? There is mucosal thickening and fluid in the left maxillary sinus.? Remainder of the paranasal sinuses are clear as are the mastoid air cells. On the left side there is a partially calcified left temporal lobe lesion noted, seen on the prior study although slightly larger on the present study.? The CT appearance is that of a probable cavernous malformation and slight increase in size is suspicious for minimal recent acute hemorrhage.? There is no significant mass effect.? No shift of midline structures.? No other lesion is identified.? No evidence of cortical infarct.? No extra-axial fluid collections. Ventricles are not enlarged or shifted.? CERVICAL SPINE: There is no evidence of fracture nor listhesis.? No significant prevertebral soft tissue swelling.? Facet arthropathy noted.? No facet malalignment. Disc space narrowing at C5-6 noted.? Also bilateral Luschka joint osteophytes at this level.? No Luschka joint osteophytes at C6-7. There is no significant facet joint malalignment. No significant osseous lesions evident. IMPRESSION: There is a hyperdense partially calcified lesion left temporal lobe suggestive of a small cavernous malformation, this appearing slightly larger than on the prior exam of 04/13/2022.? Suspicious for presence of recent hemorrhage therein..? No associated new mass or shift.? Follow-up MRI recommended. No evidence of cervical spine fracture, malalignment, nor acute compromise of the cervical spinal canal. EXAM:? XR CHEST 2V PA ? LATERAL CLINICAL HISTORY: ? seizure, r/o acute disease. ? TECHNIQUE:? 2D digital imaging was performed. COMPARISON:? No exams were available for comparison FINDINGS: 2 views: Heart size is normal.? The mediastinum is not widened. Lungs are clear.? No infiltrates nor pleural effusions. Displaced right midshaft clavicle fracture noted IMPRESSION: No acute pulmonary findings. Labs Result diagrams: 04/18/22 06:20 04/18/22 06:20 Labs: Laboratory Results - last 24 hr 04/17/22 04/17/22 04/17/22 14:45 14:45 16:10 WBC 4.93 RBC 4.62 Hgb 14.4 Hct 42.4 MCV 92 MCH 31.2 MCHC 34.0 RDW 14.1 Plt Count 246 MPV 10.0 Immature Gran % 0.8 Neutrophils % 67.8 Lymphocytes % 21.5 Monocytes % 8.9 Eosinophils % 0.8 Basophils % 0.2 Nucleated RBC % 0.0 Absolute Neutrophils 3.34 Absolute Lymphocytes 1.06 L Absolute Monocytes 0.44 Absolute Eosinophils 0.04 Absolute Basophils 0.01 Sodium 139 Potassium 3.9 Chloride 103 Carbon Dioxide 23.7 Anion Gap 12.3 H BUN 9 Creatinine 0.9 Estimated GFR/1.73 m2 >= 60.00 Glucose 108 H Calcium 8.7 Magnesium 2.2 Total Bilirubin 0.4 AST 130 H ALT 304 H Alkaline Phosphatase 69 Troponin I < 50 Total Protein 7.7 Albumin 3.4 Urine Color Yellow Urine Clarity Clear Urine pH 8.5 H Ur Specific [place] 1.020 Urine Protein Negative Urine Ketones Trace H Urine Blood Negative Urine Nitrite Negative Urine Bilirubin Negative Urine Urobilinogen 1.0 H Ur Leukocyte Esterase Negative Urine Glucose Negative Urine Opiates Screen Urine Methadone Screen Ur Barbiturates Screen Ur Tricyclics Screen Ur Amphetamines Screen U Benzodiazepines Scrn Urine Cocaine Screen Ur THC Screen Ethyl Alcohol 91.8 H COVID-19 Source SARS-CoV-2 (PCR) 04/17/22 04/17/22 16:10 17:27 WBC RBC Hgb Hct MCV MCH MCHC RDW Plt Count MPV Immature Gran % Neutrophils % Lymphocytes % Monocytes % Eosinophils % Basophils % Nucleated RBC % Absolute Neutrophils Absolute Lymphocytes Absolute Monocytes Absolute Eosinophils Absolute Basophils Sodium Potassium Chloride Carbon Dioxide Anion Gap BUN Creatinine Estimated GFR/1.73 m2 Glucose Calcium Magnesium Total Bilirubin AST ALT Alkaline Phosphatase Troponin I Total Protein Albumin Urine Color Urine Clarity Urine pH Ur Specific [place] Urine Protein Urine Ketones Urine Blood Urine Nitrite Urine Bilirubin Urine Urobilinogen Ur Leukocyte Esterase Urine Glucose Urine Opiates Screen Negative Urine Methadone Screen Negative Ur Barbiturates Screen Negative Ur Tricyclics Screen Negative Ur Amphetamines Screen Negative U Benzodiazepines Scrn Negative Urine Cocaine Screen Positive A Ur THC Screen Positive A Ethyl Alcohol COVID-19 Source Nasal/Nares SARS-CoV-2 (PCR) Negative Last Vital Signs Temp 37.2 C 04/17/22 14:12 Pulse 111 H 04/17/22 14:12 Resp 18 04/17/22 14:12 BP 131/90 04/17/22 14:12 Pulse Ox 98 04/17/22 14:12 PAWSS Have you Ever Experienced Previous Episodes of Alcohol Withdrawal?: Yes Have you ever Experienced Withdrawal Seizures?: Yes Have you ever Experienced Delirium Tremens(DT)s?: Yes Have you ever undergone Alcohol Rehabilitation Treatment (i.e, inpt ot outpatient treatment programs)?: No Have you ever Experienced Blackouts?: Yes Have you ever Combined Alcohol with other Downers within the last 90 days?: No Have you ever Combined Alcohol with any other Substance of Abuse during the last 90 days?: No Evidence of Increased Autonomic Activity (i.e. HR>120, tremor, sweating, agitation, nausea)?: Yes Result: 5
[2022-04-17 20:06] LABS: PHOSPHORUS 2.2 mg/dL (2.6-4.7)
[2022-04-17 20:11] LABS: INR 1.1 (0.9-1.1); PTT Activated 23.1 sec (21.0-27.5); Prothrombin Time 10.7 sec (9.3-11.0)
[2022-04-17 20:47] LABS: TSH (W/Ref FT4) 0.57 uIU/mL (0.36-3.74)
[2022-04-17 21:28] VITALS: BP 147/82; PULSE 75; RESP 18; TEMP 36.7; O2SAT 95
[2022-04-17 21:36] VITALS: PULSE 71
[2022-04-17] MEDS: LORazepam 1 MG TAB PO/SL (21:36)
[2022-04-17 21:42] VITALS: BP 147/82; PULSE 75; RESP 18; TEMP 36.2; O2SAT 95
[2022-04-17 23:40] VITALS: BP 143/83; PULSE 81; RESP 18; TEMP 36.5; O2SAT 95
[2022-04-18] VITALS (14 sets, daily range): BP systolic 122–160; BP diastolic 74–95; PULSE 70–90; RESP 17–23; TEMP 36.3–37.1; O2SAT 95–97
[2022-04-18] MEDS: LORazepam 1 MG TAB PO/SL ×5 (00:09→16:17)
--- NOTE | 2022-04-18 01:59 | NUR.NOTE ---
Referral to Care Management to help with referral to [facility] [place] to f/u Cavernous Malformation. Patient is admitted to [facility] m/s.Nursing Note:
[2022-04-18 06:32] LABS: Abs Immature Grans 0.05 10^3/uL (0.0-0.06); Absolute Basophil Count 0.02 10^3/uL (0.0-0.2); Absolute Eosinophil Count 0.13 10^3/uL (0.0-0.7); Absolute Lymphocyte Count 1.65 10^3/uL (1.2-3.4); Absolute Monocyte Count 0.67 10^3/uL (0.1-0.8); Absolute Neutrophil Count 3.32 10^3/uL (1.2-6.7); Basophils % 0.3; Eosinophils % 2.2; HCT 40.4 % (40.0-50.0); HGB 13.8 g/dL (13.5-17.5); Immature Grans % 0.9; Lymphocytes % 28.3; MCH 30.9 pg (27.0-33.0); MCHC 34.2 % (32.0-36.0); MCV 91 fL (80-95); MPV 10.1 fL (8.0-11.0); Monocytes % 11.5; Neutrophils % 56.8; Platelet Count 214 10^3/uL (130-400); RBC 4.46 10^6/uL (4.36-5.78); RDW 13.9 % (11.8-14.1); RDW-SD 45.7 fL; WBC 5.84 10^3/uL (4.4-10.8)
[2022-04-18 06:49] LABS: ALT 240 U/L (16-63); AST 87 U/L (15-37); Alkaline Phosphatase 61 U/L (46-116); Bilirubin, Direct 0.2 mg/dL (0.0-0.2); Bilirubin, Total 0.5 mg/dL (0.2-1.0); Total Protein 6.9 g/dL (6.4-8.2)
[2022-04-18 06:58] LABS: ALT 240 U/L (16-63); AST 87 U/L (15-37); Alkaline Phosphatase 58 U/L (46-116); Anion Gap 8.5 mmol/L (3-11); BUN 8 mg/dL (7-18); Bilirubin, Total 0.5 mg/dL (0.2-1.0); CO2 25.5 mmol/L (21.0-32.0); CREATININE 0.8 mg/dL (0.70-1.30); Calcium 8.5 mg/dL (8.5-10.1); Chloride 103 mmol/L (98-107); Glucose 116 mg/dL (74-106); Potassium 3.9 mmol/L (3.5-5.1); Sodium 137 mmol/L (136-145); Total Protein 6.9 g/dL (6.4-8.2)
[2022-04-18] MEDS: Multivitamin TAB 1 TAB PO (09:16)
[2022-04-18] MEDS: Buprenorphine/Naloxone 8 mg/2 mg FILM 2 EACH SL (09:16)
[2022-04-18] MEDS: Thiamine 100 MG TAB PO (09:16)
[2022-04-18] MEDS: Folic Acid 1 MG TAB PO (09:16)
--- NOTE | 2022-04-18 09:25 | PDOC.CMIN ---
- If Service Date Differs Date of service: 04/18/22 Time of Service: 09:25 Care Management Initial Assess REASON FOR HOSPITALIZATION:: Alcohol withdrawal seizure, Polysubstance abuse, Head injury PAST MEDICAL HISTORY/PAST SURGICAL HISTORY:: All Active Problems (Updated 04/17/22 @ 19:24 by Matthew Mauricio). Polysubstance abuse (Acute). Alcohol withdrawal seizure (Acute). Cerebral cavernous malformation (Acute). Homelessness (Acute). Head injury (Acute). Medical History (Updated 04/17/22 @ 19:24 by Matthew Mauricio). Alcohol abuse. Alcohol withdrawal seizure ADVANCE DIRECTIVES:: None Has patient been provided with info about the portal/API?: Yes Did the patient sign up for the portal?: No CODE STATUS:: Full Code INSURANCE COVERAGE / FINANCIAL ISSUES:: Medicaid PRIMARY CARE PHYSICIAN:: Dr. Raul Gann POTENTIAL DISCHARGE NEEDS:: Assessment for community support. Inpatient rehab vs. outpatient referrals PATIENT/FAMILY EDUCATION NEEDS:: Review discharge instructions, limitations, medications and plan to follow up with community providers. ask me three. TRANSPORTATION:: Via RCT PLAN:: Initial Assessment is incomplete, per pt I am to sick to talk today. CM will try again tomorrow. Anticipate, Edgar will discharge when medically ready per provider. CM will discuss options for inpatient treatment vs. close community follow up for ETOH and substance abuse. CM will continue to support Edgar's discharge planning considerations.
[2022-04-18 10:05] LABS: Lab Add On Test DONE
[2022-04-18 10:18] LABS: Creatine Kinase 58 U/L (39-308)
--- NOTE | 2022-04-18 17:18 | W.PM.PROGNOT ---
Date of Service Date of service: 04/18/22 Time of Service: 17:18 Assessment and Plan Assessment and plan (1) Alcohol withdrawal: Status: Acute Assessment and plan: Switch over to phenobarbital protocol. I think the patient will be able to stay on the medical surgical floor. Continue MVI, thiamine. (2) Alcohol withdrawal seizure: Start date: 04/17/22 Status: Acute Assessment and plan: Reported by patient prior to admission; no evidence thereof here. CPK within nml limits. Continue seizure precautions; tx alcohol withdrawal with phenobarbital. (3) Alcohol abuse: Start date: 04/17/22 Assessment and plan: Chronic. Care management to provide sobriety resources in the community. (4) Suicidal ideation: Start date: 04/17/22 Status: Acute Assessment and plan: The patient threatened to commit suicide only if he was discharged home. It is unclear how true of a suicidal ideation this is. He is not actively suicidal. The patient should be evaluated by mental health on this admission, however. (5) Polysubstance abuse: Status: Chronic Assessment and plan: Continue suboxone. (6) Head injury: Start date: 04/17/22 Status: Acute Assessment and plan: h/o cerebral cavernous malformation, stable by CT. No current new neurologic symptoms. Continue to monitor. Follow up with neurosurgery as outpatient. (7) Cerebral cavernous malformation: Status: Chronic Assessment and plan: As above. (8) Homelessness: Status: Chronic Assessment and plan: The patient cannot return to his sober house. Care management to offer resources. (9) DVT prophylaxis: Status: Acute Assessment and plan: SCDS - will abstain from chemical DVT ppx in a patient with a head injury who has a history of a cavernous malformation. (10) Discharge planning issues: Status: Acute Assessment and plan: Full code Continues to require hospitalization. Will need to be evaluated by mental health prior to d/c. Subjective Subjective Interval history since last seen: Patient reports feeling sick - he is sweating through his pajamas/bed sheets, he is tremulous, he is nauseated and having diarrhea. He denies COVID-19 exposures. He thinks his symptoms are due to alcohol withdrawal. We discussed how they may also be due to opioid withdrawal. He is interested in switching over to phenobarbital for symptom control for alcohol withdrawal - this had worked better for him in the past. No CP/SOB. Exam Narrative Exam Narrative: General: Pleasant middle-aged male, diaphoretic, tremulous, A&Ox3 HEENT: EOMI, MMM Heart: RRR, no m/r/g Lungs: ?faint expiratory rhonchi Abdomen: soft, nontender, nondistended Extremities: no edema BLEs Objective Last Vital Signs Temp 37 C 04/18/22 16:18 Pulse 72 04/18/22 16:18 Resp 18 04/18/22 16:18 BP 136/91 H 04/18/22 16:18 Pulse Ox 96 04/18/22 16:18 Laboratory Results - last 24 hr 04/17/22 04/17/22 04/17/22 14:45 17:27 19:51 WBC RBC Hgb Hct MCV MCH MCHC RDW Plt Count MPV Immature Gran % Neutrophils % Lymphocytes % Monocytes % Eosinophils % Basophils % Nucleated RBC % Absolute Neutrophils Absolute Lymphocytes Absolute Monocytes Absolute Eosinophils Absolute Basophils PT 10.7 INR 1.1 APTT 23.1 Sodium Potassium Chloride Carbon Dioxide Anion Gap BUN Creatinine Estimated GFR/1.73 m2 Glucose Calcium Phosphorus 2.2 L Total Bilirubin Conjugated Bilirubin AST ALT Alkaline Phosphatase Creatine Kinase Total Protein Albumin TSH COVID-19 Source Nasal/Nares SARS-CoV-2 (PCR) Negative Add-On Test Request 04/17/22 04/18/22 04/18/22 19:51 06:20 06:20 WBC 5.84 RBC 4.46 Hgb 13.8 Hct 40.4 MCV 91 MCH 30.9 MCHC 34.2 RDW 13.9 Plt Count 214 MPV 10.1 Immature Gran % 0.9 Neutrophils % 56.8 Lymphocytes % 28.3 Monocytes % 11.5 Eosinophils % 2.2 Basophils % 0.3 Nucleated RBC % 0.0 Absolute Neutrophils 3.32 Absolute Lymphocytes 1.65 Absolute Monocytes 0.67 Absolute Eosinophils 0.13 Absolute Basophils 0.02 PT INR APTT Sodium 137 Potassium 3.9 Chloride 103 Carbon Dioxide 25.5 Anion Gap 8.5 BUN 8 Creatinine 0.8 Estimated GFR/1.73 m2 >= 60.00 Glucose 116 H Calcium 8.5 Phosphorus Total Bilirubin 0.5 Conjugated Bilirubin AST 87 H ALT 240 H Alkaline Phosphatase 58 Creatine Kinase Total Protein 6.9 Albumin 3.0 L TSH 0.57 COVID-19 Source SARS-CoV-2 (PCR) Add-On Test Request 04/18/22 04/18/22 04/18/22 06:20 06:20 06:20 WBC RBC Hgb Hct MCV MCH MCHC RDW Plt Count MPV Immature Gran % Neutrophils % Lymphocytes % Monocytes % Eosinophils % Basophils % Nucleated RBC % Absolute Neutrophils Absolute Lymphocytes Absolute Monocytes Absolute Eosinophils Absolute Basophils PT INR APTT Sodium Potassium Chloride Carbon Dioxide Anion Gap BUN Creatinine Estimated GFR/1.73 m2 Glucose Calcium Phosphorus Total Bilirubin 0.5 Conjugated Bilirubin 0.2 AST 87 H ALT 240 H Alkaline Phosphatase 61 Creatine Kinase 58 Total Protein 6.9 Albumin 3.0 L TSH COVID-19 Source SARS-CoV-2 (PCR) Add-On Test Request DONE PAWSS Have you Ever Experienced Previous Episodes of Alcohol Withdrawal?: Yes Have you ever Experienced Withdrawal Seizures?: Yes Have you ever Experienced Delirium Tremens(DT)s?: Yes Have you ever undergone Alcohol Rehabilitation Treatment (i.e, inpt ot outpatient treatment programs)?: No Have you ever Experienced Blackouts?: Yes Have you ever Combined Alcohol with other Downers within the last 90 days?: No Have you ever Combined Alcohol with any other Substance of Abuse during the last 90 days?: No Evidence of Increased Autonomic Activity (i.e. HR>120, tremor, sweating, agitation, nausea)?: Yes Result: 5
[2022-04-18] MEDS: Ondansetron 4 MG/2 ML VIAL IVP (17:52)
[2022-04-18] MEDS: Lactated Ringers 1,000 ML 125 ML IV (17:53)
[2022-04-18] MEDS: Normal Saline Flush 10 ML SYR IVP ×2 (17:53→18:57)
[2022-04-18] MEDS: PHENobarbital 130 MG/ML VIAL IVP (18:57)
[2022-04-18] MEDS: Normal Saline 50 ML 100 ML IVPB (21:50)
[2022-04-18] MEDS: PHENobarbital 130 MG/ML VIAL 162 MG IVP (21:50)
[2022-04-19] MEDS: Normal Saline 50 ML 100 ML IVPB ×2 (00:03→02:49)
[2022-04-19] MEDS: PHENobarbital 130 MG/ML VIAL 219 MG IVP ×2 (00:03→02:48)
[2022-04-19 02:45] VITALS: BP 128/70; PULSE 86; RESP 20; TEMP 36.6; O2SAT 96
[2022-04-19] MEDS: Lactated Ringers 1,000 ML 125 ML IV (04:05)
[2022-04-19] MEDS: diphenhydrAMINE 50 MG/ML VIAL IVP (05:04)
[2022-04-19 05:06] VITALS: BP 124/73; PULSE 77; RESP 20; TEMP 37; O2SAT 94
[2022-04-19 05:46] VITALS: PULSE 95
--- NOTE | 2022-04-21 16:30 | CMACTNOTE_ITS ---
- If Service Date Differs Date of service: 04/21/22 Time of Service: 16:30 Care Management Activity Note Edgar is seen in the ED for alcohol withdrawal, seizure, and cerebral cavernous malformation. At the request of ED provider, DANNY coordinates a referral to [facility] to assist Edgar in obtaining an appointment for further evaluation and treatment. He has Medicaid for insurance.
== END 2022-04-19 05:55 | disposition left against medical advice (07) | DRG 894 ==
LOC: ER 19:33 → MS 21:13
PROVIDERS: Internal Medicine; Admitting Provider Family Medicine; Emergency Provider Physician Assistant; PCP Nurse Practitioner Family; Visit Provider Family Medicine
DX: F10.139 Alcohol abuse with withdrawal, unspecified; Q04.8 Other specified congenital malformations of brain; R45.851 Suicidal ideations; R56.9 Unspecified convulsions; Z59.00 Homelessness unspecified; F19.10 Other psychoactive substance abuse, uncomplicated; S09.90XA Unspecified injury of head, initial encounter; F17.210 Nicotine dependence, cigarettes, uncomplicated; W10.8XXA Fall (on) (from) other stairs and steps, initial encounter
CPT/HCPCS: 36415; 80048; 80053; 80076; 80307; 82550; 86704; 86706; 86803; 87340; 87635; 93005; 96361; 96365; 96366; 96375; 99285; 70450; 71046; 72125; 80320; 81003; 83735; 84100; 84443; 84484; 85025; 85610; 85730; 93010; 99223; 99232; J0131; J1200; J2060; J2405; J2560; J3490

== ENCOUNTER 2022-04-19 06:52 | Inpatient (IN) | payer MEDICAID, SELFPAY ==
[2022-04-19] VITALS (37 sets, daily range): BP systolic 112–147; BP diastolic 65–93; PULSE 79–126; RESP 9–28; TEMP 36.5–37.4; O2SAT 92–98
--- NOTE | 2022-04-19 07:07 | ED.GENADUL_ITS ---
Discharge Plan Disposition Patient Disposition: STILL A PATIENT Condition: Stable Discharge Details Clinical Impression: ETOH abuse Admit Date/Time: 04/19/22 09:25 Admit Provider: Myrtle العراقي Attending Provider: Myrtle العراقي Primary Care Provider: TEMI MANDUJANO ED Provider: Any Meade Discharge Data Discharge Date/Time-TO BE ENTERED AT DEPARTURE: 04/19/22 13:15 Medical Decision Making <Mitchell Keane DO - Last Filed: 04/19/22 07:15> 51-year-old male with a past medical history of chronic alcoholism, substance abuse, who was just admitted 2 days ago for alcohol withdrawal, and th en left early this morning AGAINST MEDICAL ADVICE because I was hungry and wanted food. He walked down to the corner store, drank a notable amount of alcohol, ate some food, and then came back to the emergency department to check back in. He states he did hit his head but his not specific as to how. He denies any chest pain abdominal pain numbness, tingling, or weakness. He has no other complaints at this time. He denies any current homicidal or suicidal ideations. Exam demonstrates exam demonstrates a notably intoxicated male, small abrasion on his forehead. No midline cervical thoracic or lumbar spine tenderness. We will get a CT scan of his head neck out of an abundance of caution, he is wishing to check back in. For still need to be medically evaluated. We will check his alcohol level, get the referred imaging, monitor closely and reassess. He was signed out to my colleague Dr. Any Meade for follow-up on labs and imaging <Any Meade MD - Last Filed: 04/26/22 08:43> 51-year-old male with a past medical history of chronic alcoholism, substance abuse, who was just admitted 2 days ago for alcohol withdrawal, and then left early this morning AGAINST MEDICAL ADVICE because I was hungry and wanted food. He walked down to the corner store, drank a notable amount of alcohol, ate some food, and then came back to the emergency department to check back in. He states he did hit his head but his not specific as to how. He denies any chest pain abdominal pain numbness, tingling, or weakness. He has no other complaints at this time. He denies any current homicidal or suicidal ideations. Exam demonstrates exam demonstrates a notably intoxicated male, small abrasion on his forehead. No midline cervical thoracic or lumbar spine tenderness. We will get a CT scan of his head neck out of an abundance of caution, he is wishing to check back in. For still need to be medically evaluated. We will ch bibi his alcohol level, get the referred imaging, monitor closely and reassess. He was signed out to my colleague Dr. Any Meade for follow-up on labs and imaging Any Meade MD: Patient signed out to me by Dr. Keane at time of shift change. Patient reporting that he feels he is in withdrawal and cannot undergo CT head because he feels anxious and agitated, he is requesting phenobarbital. Unclear if patient used substances prior to presenting to the emergency department, plan for small dose phenobarbital, will continue to monitor closely. Patient felt improved briefly after medication, underwent CT head. Reports feeling anxious after CT, will redose phenobarbital. CT negative. Patient with worsening tachycardia. Unclear alcohol versus opiate withdrawal at this point, patient appears restless, repeatedly moving from sitting to standing, dilated pupils bilaterally at 4 mm, no tremor. Plan for admission for possible alcohol withdrawal Medical Records Medical records reviewed: Yes I reviewed the patient's medical records. Lab Data Lab results reviewed: Yes I reviewed the patient's lab results. HPI <Mitchell Keane, - Last Filed: 04/19/22 07:15> General Date/Time Provider Initiated Documentation: 04/19/22 06:53 . HPI Narrative: 51-year-old male with a past medical history of chronic alcoholism, substance abuse, who was just admitted 2 days ago for alcohol withdrawal, and then left early this morning AGAINST MEDICAL ADVICE because I was hungry and wanted food. He walked down to the corner store, drank a notable amount of alcohol, ate some food, and then came back to the emergency department to check back in. He states he did hit his head but his not specific as to how. He denies any chest pain abdominal pain numbness, tingling, or weakness. He has no other complaints at this time. He denies any current homicidal or suicidal ideations. Related Data Home Medications Medication Instructions Recorded Confirmed buprenorphine 8 mg-naloxone 2 mg 2 tab sublingual DAILY 04/13/22 04/22/22 sublingual tablet aripiprazole 5 mg tablet 5 mg PO DAILY 04/20/22 04/22/22 fluoxetine 40 mg capsule 40 mg PO DAILY 04/20/22 04/22/22 lamotrigine 100 mg tablet 100 mg PO DAILY 04/20/22 04/22/22 fluoxetine 40 mg capsule (Prozac) 40 mg PO DAILY 04/22/22 04/22/22 quetiapine 50 mg tablet 100 mg PO DAILY 04/22/22 04/22/22 Allergies Allergy/AdvReac Type Severity Reaction Status Date / Time No Known Allergies Allergy Unverified 04/22/22 09:00 General Stated Complaint: GenMedical ADRIAN: 3 Review of Systems <Mitchell Keane DO - Last Filed: 04/19/22 07:15> All systems reviewed & are unremarkable except as noted in HPI and below PFSH <Mitchell Keane DO - Last Filed: 04/19/22 07:15> All Active Problems (Updated 04/22/22 @ 14:48 by Isabela Haynes NP) Alcohol intoxication (Acute) Closed head injury (Acute) ETOH abuse (Chronic) Suicidal ideation (Acute) Polysubstance abuse (Chronic) Alcohol withdrawal seizure (Acute) Cerebral cavernous malformation (Chronic) Homelessness (Chronic) Head injury (Acute) Medical History Alcohol abuse Alcohol withdrawal seizure Social History Smoking/Tobacco Use Status: Current every day Tobacco Type: cigarettes Smoking risk assessment performed?: Yes Alcohol Intake: current Alcohol Intake frequency: 3 or more drinks per day Drug use: Daily Substance use type: crack/cocaine Do you feel safe at home: Yes Do you feel safe in your relationship?: Yes Exam <Mitchell Keane DO - Last Filed: 04/19/22 07:15> Narrative Exam Narrative: 1.Const: Well-nourished, Well-developed, appearing stated age 2.Eyes: PERRL, no conjunctival injection, and symmetrical lids. 3.ENT: Atraumatic external nose and ears. Moist MM. Neck: Symmetric, trachea midline, No thyromegaly. There is no evidence of raccoon eyes, cornell sign, CSF rhinorrhea, mastoid tenderness, cranial crepitus, hemotympanum, exophthalmos, or hyphema. Patient demonstrates intact dentition with no signs of tooth avulsion or fracture, no signs of jaw deformity, no evidence of a LeFort's fracture, with an intact palate, nose and orbital region. There is no evidence of a nasal septal hematoma. No proptosis. Jaw closes symmetrically. Airway is clear. 4.CVS: +S1/S2, No murmurs or gallops. Peripheral pulses 2+ and equal in all extremities. Brisk capillary refill in all extremities. 5.RESP: Unlabored respiratory effort. Clear to auscultation bilaterally. No wheezes rales or rhonchi 6.GI: Soft, Nontender/Nondistended, No hepatosplenomegaly. No guarding or rebound. 7.MSK: Normocephalic/Atraumatic, Extremities w/o deformity or ttp No cyanosis or clubbing, Normal movement of all extremities 8.Skin: Warm, Dry. No rashes or lesions. Small abrasion noted over the forehead 9.Neuro: vector control specialist II-XII grossly intact. Sensation grossly intact, no focal neurologic deficits. 10.Psych: (AAO) x2. Notably intoxicated. Course <Mitchell Keane DO - Last Filed: 04/19/22 07:15> Vital Signs Vital signs: Vital Signs Temperature 36.5 C 04/19/22 06:58 Pulse 90 04/19/22 06:58 Respiratory Rate 16 04/19/22 06:58 Blood Pressure 138/87 04/19/22 06:58 Pulse Oximetry 92 04/19/22 06:58 Temperature 36.5 C 04/19/22 06:58 Temperature Source Temporal Artery Scan 04/19/22 06:58 Pulse 90 04/19/22 06:58 Respiratory Rate 16 04/19/22 06:58 Respiratory Effort 04/19/22 06:58 Blood Pressure 138/87 04/19/22 06:58 Blood Pressure Position Sitting 04/19/22 06:58 Pulse Oximetry 92 04/19/22 06:58 Pain Level 10 04/19/22 06:58 Sign Out <Mitchell Keane DO - Last Filed: 04/19/22 07:15> Sign Out Data: Sign Out Comment: Just left AMA from upstairs a few hours ago. Went to the corner store and drank alcohol and ate food and then came back. Claims he fell and hit his head on the way back. Pending CT scan and labs and potential readmission versus discharge Last updated by Mitchell Keane DO at 04/19/22 07:19
[2022-04-19] MEDS: Normal Saline 1,000 ML 1000 ML IV ×2 (07:34→12:10)
[2022-04-19 07:36] LABS: Abs Immature Grans 0.06 10^3/uL (0.0-0.06); Absolute Basophil Count 0.02 10^3/uL (0.0-0.2); Absolute Eosinophil Count 0.14 10^3/uL (0.0-0.7); Absolute Lymphocyte Count 3.14 10^3/uL (1.2-3.4); Absolute Monocyte Count 0.73 10^3/uL (0.1-0.8); Absolute Neutrophil Count 4.28 10^3/uL (1.2-6.7); Basophils % 0.2; Eosinophils % 1.7; HCT 43.6 % (40.0-50.0); HGB 14.6 g/dL (13.5-17.5); Immature Grans % 0.7; Lymphocytes % 37.5; MCH 30.9 pg (27.0-33.0); MCHC 33.5 % (32.0-36.0); MCV 92 fL (80-95); Monocytes % 8.7; Neutrophils % 51.2; Platelet Count 252 10^3/uL (130-400); RBC 4.72 10^6/uL (4.36-5.78); RDW 13.8 % (11.8-14.1); RDW-SD 46.5 fL; WBC 8.37 10^3/uL (4.4-10.8)
[2022-04-19 07:52] LABS: *AMPHETAMINES SCREEN URINE Negative (Negative); *BARBITURATES SCREEN URINE Positive (Negative); *BENZODIAZEPINES SCREEN URINE Negative (Negative); ALT 230 U/L (16-63); AST 85 U/L (15-37); Albumin 3.4 g/dL (3.4-5.0); Alkaline Phosphatase 67 U/L (46-116); Anion Gap 10.4 mmol/L (3-11); BUN 7 mg/dL (7-18); Bilirubin, Total 0.4 mg/dL (0.2-1.0); CO2 25.6 mmol/L (21.0-32.0); CREATININE 0.9 mg/dL (0.70-1.30); Cannabinoids THC Negative (Negative); Chloride 99 mmol/L (98-107); Cocaine Screen,Urine Negative (Negative); ETHANOL BLOOD 169.2 mg/dL (<10); Glucose 133 mg/dL (74-106); METHADONE URINE SCREEN Negative (Negative); OPIATES URINE SCREEN Negative (Negative); Potassium 4.1 mmol/L (3.5-5.1); Sodium 135 mmol/L (136-145); Total Protein 7.7 g/dL (6.4-8.2); Tricyclic Antidepressants Negative (Negative)
--- NOTE | 2022-04-19 08:18 | NUR.NOTE ---
Pt did not accept/tolerate head CT procedure. Pt exited the CT table [address] scanning attempt, pt also removed his own IV prior to this CT attempt, Dr Marilu Meade made aware. Pt now is back in room #7 resting quietly with a warm blanket at present
[2022-04-19] MEDS: PHENobarbital 130 MG/ML VIAL 60 MG IVP (08:50)
--- NOTE | 2022-04-19 09:00 | DI.CT_ITS ---
Exam(s) CT HEAD CERVICAL SPINE WO EXAM: CT HEAD CERVICAL SPINE WO CLINICAL HISTORY: fall, etoh, hit head. TECHNIQUE: Imaging Protocol: Axial computed tomography images with coronal and sagittal reformatted images were created and reviewed COMPARISON: CT CT HEAD CERVICAL SPINE WO from 04/17/2022 FINDINGS: Head CT Ventricles and Extra axial spaces: Normal in size and morphology for the patient's age. Hemorrhage: None. Cerebral parenchyma: Normal. Midline shift: None. Brainstem/Cerebellum: Normal. Calvarium: Normal. Visualized Paranasal sinuses/Mastoids: Mucosal thickening floor left maxillary sinus. Cervical Spine CT BONES: Congenital fusion between C2 and C3. Vertebral body heights are maintained. Alignment is norm al. There is no evidence of acute fracture. Degenerative disc changes and facet degenerative changes are seen at C5-6. . SOFT TISSUES: No paraspinal hematoma. The airway appears intact. No pneumothorax is seen at the lung apices. IMPRESSION: Head CT: No acute abnormality. C-spine CT: Degenerative changes, no acute abnormality. RADIATION DOSE DELIVERED: 876.78 mGy.cm Total DLP DATA REPOSITORY: All CT scans at this facility are submitted to the National Radiology Data Registry (NRDR) Dose Index Registry (DIR) with the [employer] (A[employer]). RADIATION OPTIMIZATION: All CT scans at this facility use at least one of these dose optimization te chniques: automated exposure control; mA and/or kV adjustment per patient size (includes targeted exa ms where dose is matched to clinical indication); or iterative reconstruction.
[2022-04-19 09:01] LABS: PHENOBARBITAL 9.8 ug/mL (15.0-40.0)
[2022-04-19] MEDS: PHENobarbital 130 MG/ML VIAL 70 MG IVP (10:01)
[2022-04-19 10:31] LABS: Source Nasal/Nares
[2022-04-19 11:21] LABS: COVID-19 PCR Negative (Negative)
[2022-04-19] MEDS: PHENobarbital 130 MG in Normal Saline 50 ML 100 MG IVPB (11:35)
[2022-04-19] MEDS: PHENobarbital 130 MG/ML VIAL IVP (12:19)
[2022-04-19] MEDS: THIAMINE 100 MG in Normal Saline 100 ML 200 MG IVPB (12:55)
[2022-04-19] MEDS: Buprenorphine/Naloxone 8 mg/2 mg FILM 2 EACH SL (14:08)
--- NOTE | 2022-04-19 14:38 | NUR.NOTE ---
Patient currently not wearing telemetry leads, BP cuff, or pulse ox. Patient is pacing around room and waiting for picc line or some sort of IV access to receive phenobarbital. Patient is very anxious. RN aware. Nursing Note:
[2022-04-19] MEDS: PHENobarbital 130 MG/ML VIAL 260 MG IVP ×3 (15:00→22:02)
--- NOTE | 2022-04-19 16:36 | W.PM.HP.N ---
Date of service: 04/19/22 Time of Service: 16:36 Assessment and Plan Assessment and plan (1) Alcohol withdrawal: Status: Acute Assessment and plan: Continue phenobarbital protocol. MVI, thiamine. Continue telemetry. (2) Opioid withdrawal: Status: Acute Assessment and plan: Provide suboxone. (3) Cerebral cavernous malformation: Status: Chronic Assessment and plan: Asymptomatic. Given closed head injury, at a high risk of bleeding. Hold chemical DVT ppx - will treat with SCDs. (4) Closed head injury: Status: Acute Assessment and plan: Monitor mental status. Currently at baseline. (5) DVT prophylaxis: Status: Acute Assessment and plan: SCDs (6) Discharge planning issues: Status: Acute Assessment and plan: Full code Homeless History of Present Illness History of Present Illness Chief Complaint: If I don't get something quick, I'm going to walk out Narrative: Mr Castillo is a 51 year old male with PMhx of EtOH abuse and EtOH w/d seizures, as well as h/o polysubstance abuse including IV heroin, cocaine, on suboxone therapy as outpatient, h/o cerebral cavernous malformation, who is currently homeless and who left our facility AMA last night, who returned to the ED after alcohol intoxication and a fall, hitting the front of his head. The patient was schowing signs of agitation and alcohol withdrawal in the ED, receiving phenobarbital there. Hospitalist admission was requested. ON my evaluation, the patient threatens to leave AMA unless we quickly replace his IV and quickly give him something for his withdrawal - otherwise, I'm just going to leave and get some street heroin. He agreed to stay when we offered him his suboxone which he had not yet had today. He reports a headache, dizziness, diffuse chest pain, shortness of breath, palpitations, nausea, anxiety. He actually answers yes to every question on review of systems. Review of Systems All systems reviewed & are unremarkable except as noted in HPI and below PFSH All Active Problems (Updated 04/19/22 @ 16:44 by Myrtle العراقي MD) Closed head injury (Acute) Opioid withdrawal (Acute) ETOH abuse (Chronic) Alcohol withdrawal (Acute) Discharge planning issues (Acute) DVT prophylaxis (Acute) Suicidal ideation (Acute) Polysubstance abuse (Chronic) Alcohol withdrawal seizure (Acute) Cerebral cavernous malformation (Chronic) Homelessness (Chronic) Head injury (Acute) Medical History Alcohol abuse Alcohol withdrawal seizure Social History Smoking/Tobacco Use Status: Current every day Tobacco Type: cigarettes Smoking risk assessment performed?: Yes Alcohol Intake: current Alcohol Intake frequency: 3 or more drinks per day Drug use: Daily Substance use type: crack/cocaine Do you feel safe at home: Yes Do you feel safe in your relationship?: Yes Meds Allergies and Home Medications Allergies Allergy/AdvReac Type Severity Reaction Status Date / Time No Known Allergies Allergy Unverified 04/17/22 14:15 Home Medications Medication Instructions Recorded Confirmed Type buprenorphine 8 mg-naloxone 2 mg 2 tab sublingual DAILY 04/13/22 04/19/22 History sublingual tablet Exam Narrative Exam Narrative: General: Agitated/anxious middle-aged male who has no bruises to suggest a recent injury, A&Ox3, not tremulous on my exam Neurological: A&Ox3, not tremulous, no focal deficits Psychiatric: Agitation/anxious Skin: A dark line vertically on his forehead which does not look like a healing abrasion/scab HEENT: Atraumatic, normocephalic, EOMI, MMM, clear oropharynx, no submandibular or cervical lymphadenopathy, no goiter or JVD Cardiovascular: RRR, mildly tachycardic Lungs: CTAB Gastrointestinal: soft, nontender, nondistended Genitourinary: deferred Extremities: no edema BLEs Results Imaging Additional studies: CT head/c-spine: Head CT: No acute abnormality. C-spine CT: Degenerative changes, no acute abnormality. Labs Result diagrams: 04/19/22 07:19 04/19/22 07:19 Labs: Laboratory Results - last 24 hr 04/19/22 04/19/22 04/19/22 07:19 07:19 07:19 WBC 8.37 RBC 4.72 Hgb 14.6 Hct 43.6 MCV 92 MCH 30.9 MCHC 33.5 RDW 13.8 Plt Count 252 MPV 10.0 Immature Gran % 0.7 Neutrophils % 51.2 Lymphocytes % 37.5 Monocytes % 8.7 Eosinophils % 1.7 Basophils % 0.2 Nucleated RBC % 0.0 Absolute Neutrophils 4.28 Absolute Lymphocytes 3.14 Absolute Monocytes 0.73 Absolute Eosinophils 0.14 Absolute Basophils 0.02 Sodium 135 L Potassium 4.1 Chloride 99 Carbon Dioxide 25.6 Anion Gap 10.4 BUN 7 Creatinine 0.9 Estimated GFR/1.73 m2 >= 60.00 Glucose 133 H Calcium 9.0 Total Bilirubin 0.4 AST 85 H ALT 230 H Alkaline Phosphatase 67 Total Protein 7.7 Albumin 3.4 Urine Opiates Screen Negative Urine Methadone Screen Negative Ur Barbiturates Screen Positive A Ur Tricyclics Screen Negative Ur Amphetamines Screen Negative Phenobarbital U Benzodiazepines Scrn Negative Urine Cocaine Screen Negative Ur THC Screen Negative Ethyl Alcohol 169.2 H COVID-19 Source SARS-CoV-2 (PCR) 04/19/22 04/19/22 07:19 10:26 WBC RBC Hgb Hct MCV MCH MCHC RDW Plt Count MPV Immature Gran % Neutrophils % Lymphocytes % Monocytes % Eosinophils % Basophils % Nucleated RBC % Absolute Neutrophils Absolute Lymphocytes Absolute Monocytes Absolute Eosinophils Absolute Basophils Sodium Potassium Chloride Carbon Dioxide Anion Gap BUN Creatinine Estimated GFR/1.73 m2 Glucose Calcium Total Bilirubin AST ALT Alkaline Phosphatase Total Protein Albumin Urine Opiates Screen Urine Methadone Screen Ur Barbiturates Screen Ur Tricyclics Screen Ur Amphetamines Screen Phenobarbital 9.8 L U Benzodiazepines Scrn Urine Cocaine Screen Ur THC Screen Ethyl Alcohol COVID-19 Source Nasal/Nares SARS-CoV-2 (PCR) Negative Last Vital Signs Temp 37.4 C 04/19/22 16:04 Pulse 105 H 04/19/22 15:07 Resp 13 04/19/22 15:30 BP 121/80 04/19/22 15:07 Pulse Ox 94 04/19/22 15:07
--- NOTE | 2022-04-19 16:50 | DSE_ITS ---
Date of service: 04/19/22 Time of Service: 16:50 DS: Diagnosis Discharge Diagnosis (1) Alcohol withdrawal: Status: Acute (2) Opioid withdrawal: Status: Acute (3) Cerebral cavernous malformation: Status: Chronic (4) Closed head injury: Status: Acute (5) DVT prophylaxis: Status: Acute (6) Discharge planning issues: Status: Acute Discharge Plan Disposition Patient Disposition: AGAINST MEDICAL ADVICE Condition: Stable Discharge Details Reason For Visit: Alcohol Intoxication and Withdrawl Admit Date/Time: 04/19/22 09:25 Admit Provider: Myrtle العراقي Attending Provider: Myrtle العراقي [facility] Hospital Course: 51 male with h/o alcohol and opiate abuse, admitted 04/17 with alcohol withdrawal and suicidal ideation. Started on benzodiazepine regimren for withdrawal then transitioned to phenobarbital. On hospital day 2 patient left AMA. Home Meds and New Rx's Prescriptions: No Action buprenorphine-naloxone [Suboxone] 8-2 mg Tablet, Sublingual 2 tab SUBLINGUAL DAILY DS: Summary Time Spent with Patient providing and/or coordinating discharge services: Less than 30 minutes Status at Discharge Functional status at discharge: independent ambulation Overall status at discharge: patient is not back to baseline Mental Status: mental status grossly normal Speech and Movement: agitated Mood: congruent mood Affect: irritable affect Exam Psych Mental Status: mental status grossly normal Speech and Movement: agitated Mood: congruent mood Affect: irritable affect DS: Data Vitals/I&O Vitals and I&O: Vital Signs Temperature 37.4 C 04/19/22 16:04 Temperature Source Temporal Artery Scan 04/19/22 16:04 Pulse 105 H 04/19/22 15:07 Pulse 105 H 04/19/22 15:30 Respiratory Rate 13 04/19/22 15:30 Respiratory Effort 04/19/22 16:01 Respiratory Depth Normal 04/19/22 16:01 Respiratory Pattern Normal 04/19/22 16:01 Blood Pressure 121/80 04/19/22 15:07 Blood Pressure Mean 90 04/19/22 15:07 Blood Pressure Position Sitting 04/19/22 06:58 Pulse Oximetry 94 04/19/22 15:07 Oxygen Delivery Method Room Air 04/19/22 16:04 Oxygen Flow Rate 0 04/19/22 16:04 Pain Level 0 04/19/22 16:04 Intake & Output 04/18/22 04/19/22 04/19/22 23:59 11:59 23:59 Intake Total 1000 / 2952.000 1952.000 / 2952.000 Balance 1000 / 2952.000 1952.000 / 2952.000 Weight 85.956 kg 189 kg Intake: IV 1000 / 2152.000 1152.000 / 2152.000 Oral 800 / 800 Other: Urine Appearance Clear Data Completed and Pending Labs on day of discharge: Labs from last 24 hours 04/19/22 04/19/22 04/19/22 16:43 10:26 07:19 WBC RBC Hgb Hct MCV MCH MCHC RDW Plt Count MPV Immature Gran % Neutrophils % Lymphocytes % Monocytes % Eosinophils % Basophils % Nucleated RBC % Absolute Neutrophils Absolute Lymphocytes Absolute Monocytes Absolute Eosinophils Absolute Basophils Sodium Potassium Chloride Carbon Dioxide Anion Gap BUN Creatinine Estimated GFR/1.73 m2 Glucose Calcium Total Bilirubin AST ALT Alkaline Phosphatase Total Protein Albumin Urine Opiates Screen Urine Methadone Screen Ur Barbiturates Screen Ur Tricyclics Screen Ur Amphetamines Screen Phenobarbital Pending 9.8 L U Benzodiazepines Scrn Urine Cocaine Screen Ur THC Screen Ethyl Alcohol COVID-19 Source Nasal/Nares SARS-CoV-2 (PCR) Negative 04/19/22 04/19/22 04/19/22 07:19 07:19 07:19 WBC 8.37 RBC 4.72 Hgb 14.6 Hct 43.6 MCV 92 MCH 30.9 MCHC 33.5 RDW 13.8 Plt Count 252 MPV 10.0 Immature Gran % 0.7 Neutrophils % 51.2 Lymphocytes % 37.5 Monocytes % 8.7 Eosinophils % 1.7 Basophils % 0.2 Nucleated RBC % 0.0 Absolute Neutrophils 4.28 Absolute Lymphocytes 3.14 Absolute Monocytes 0.73 Absolute Eosinophils 0.14 Absolute Basophils 0.02 Sodium 135 L Potassium 4.1 Chloride 99 Carbon Dioxide 25.6 Anion Gap 10.4 BUN 7 Creatinine 0.9 Estimated GFR/1.73 m2 >= 60.00 Glucose 133 H Calcium 9.0 Total Bilirubin 0.4 AST 85 H ALT 230 H Alkaline Phosphatase 67 Total Protein 7.7 Albumin 3.4 Urine Opiates Screen Negative Urine Methadone Screen Negative Ur Barbiturates Screen Positive A Ur Tricyclics Screen Negative Ur Amphetamines Screen Negative Phenobarbital U Benzodiazepines Scrn Negative Urine Cocaine Screen Negative Ur THC Screen Negative Ethyl Alcohol 169.2 H COVID-19 Source SARS-CoV-2 (PCR) PFSH All Active Problems (Updated 04/19/22 @ 16:44 by Myrtle العراقي MD) Closed head injury (Acute) Opioid withdrawal (Acute) ETOH abuse (Chronic) Alcohol withdrawal (Acute) Discharge planning issues (Acute) DVT prophylaxis (Acute) Suicidal ideation (Acute) Polysubstance abuse (Chronic) Alcohol withdrawal seizure (Acute) Cerebral cavernous malformation (Chronic) Homelessness (Chronic) Head injury (Acute) Medical History Alcohol abuse Alcohol withdrawal seizure Social History Smoking/Tobacco Use Status: Current every day Tobacco Type: cigarettes Smoking risk assessment performed?: Yes Alcohol Intake: current Alcohol Intake frequency: 3 or more drinks per day Drug use: Daily Substance use type: crack/cocaine Do you feel safe at home: Yes Do you feel safe in your relationship?: Yes
[2022-04-19 18:08] LABS: PHENOBARBITAL 22.4 ug/mL (15.0-40.0)
[2022-04-19] MEDS: Acetaminophen 325 MG TAB PO (19:42)
[2022-04-19] MEDS: Normal Saline Flush 10 ML SYR IVP ×2 (22:17→22:18)
[2022-04-20 06:49] LABS: Anion Gap 6.8 mmol/L (3-11); BUN 12 mg/dL (7-18); CO2 28.2 mmol/L (21.0-32.0); CREATININE 0.9 mg/dL (0.70-1.30); Calcium 8.6 mg/dL (8.5-10.1); Chloride 100 mmol/L (98-107); Glucose 146 mg/dL (74-106); Potassium 4.1 mmol/L (3.5-5.1); Sodium 135 mmol/L (136-145)
--- NOTE | 2022-04-20 09:25 | PDOC.CMIN ---
- If Service Date Differs Date of service: 04/20/22 Time of Service: 09:25 Care Management Initial Assess REASON FOR HOSPITALIZATION:: alcohol withdrawal PAST MEDICAL HISTORY/PAST SURGICAL HISTORY:: All Active Problems (Updated 04/19/22 @ 16:44 by Myrtle العراقي MD). Closed head injury (Acute). Opioid withdrawal (Acute). ETOH abuse (Chronic). Alcohol withdrawal (Acute). Discharge planning issues (Acute). DVT prophylaxis (Acute). Suicidal ideation (Acute). Polysubstance abuse (Chronic). Alcohol withdrawal seizure (Acute). Cerebral cavernous malformation (Chronic). Homelessness (Chronic). Head injury (Acute). Medical History . Alcohol abuse. Alcohol withdrawal seizure PREVIOUS FUNCTIONAL STATUS/SOCIAL/FAMILY SUPPORTS:: Edgar is currently homeless. He is from the [facility] and his mother lives there. Edgar relocated to the [facility] to live in a sober house but was evicted when he got drunk. Edgar stated that he would like to remain in the [facility] as he likes it better than [place]. 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 He is independent with ADLs. CURRENT FUNCTIONAL STATUS:: Edgar was sititng up in bed when CM met with him. He stated that he is not feeling well at all and is really shaky. His RASS scores have been between +1 and +2 today. Edgar asked to see CM and requested that referrals be sent to substance use rehab facilities. CM explained that he would need to self refer. CM offered to call a Blanket Inspector who will assist with that process. Edgar agreed but asked that they come the following day as he feels too ill to participate today. ADVANCE DIRECTIVES:: none on file Has patient been provided with info about the portal/API?: Yes Did the patient sign up for the portal?: No CODE STATUS:: Full Code INSURANCE COVERAGE / FINANCIAL ISSUES:: Medicaid CURRENT HOME/COMMUNITY SERVICES/EQUIPMENT:: none PRIMARY CARE PHYSICIAN:: Raul Gann POTENTIAL DISCHARGE NEEDS:: Follow up with PCP and plan of care PATIENT/FAMILY EDUCATION NEEDS:: Review of discharge instructions, follow up plan, limitations, Ask Me Three TRANSPORTATION:: RCT vs private vehicle PLAN:: Edgar will likley be discharged with no new services. He may seek inpatient rehab for his substance use issues and plans to meet with a Blanket Inspector tomorrow. CM will continue to support Edgar and his discharge needs.
[2022-04-20] MEDS: Folic Acid 1 MG TAB PO (12:49)
[2022-04-20] MEDS: Thiamine 100 MG TAB PO (12:49)
[2022-04-20] MEDS: Multivitamin TAB 1 TAB PO (12:49)
[2022-04-20] MEDS: Buprenorphine/Naloxone 8 mg/2 mg FILM 2 EACH SL (12:49)
[2022-04-20] MEDS: PHENobarbital 130 MG/ML VIAL IVP ×2 (12:56→17:44)
[2022-04-20] MEDS: Normal Saline Flush 10 ML SYR IVP ×2 (12:57→17:45)
[2022-04-20 13:37] VITALS: O2SAT 95
[2022-04-20 13:38] VITALS: BP 106/64; PULSE 79
[2022-04-20 13:40] VITALS: BP 106/64; PULSE 80; RESP 16; TEMP 36.7; O2SAT 94
--- NOTE | 2022-04-20 13:49 | W.PM.PROGNOT ---
Date of Service Date of service: 04/20/22 Time of Service: 13:49 Assessment and Plan Assessment and plan (1) Alcohol withdrawal: Status: Acute Assessment and plan: Continue phenobarbital protocol although patient is nearing his hard maximum stop point of 25 mg/kg. I would try to avoid benzodiazepines unless he is showing objective signs and symptoms of alcohol withdrawal such as tachycardia, diaphoresis, auditory visual hallucinations. MVI, thiamine. Continue telemetry Critical care time spent interviewing and examining the patient, reviewing studies, discussing case with patient's nurse and consulting physicians was 30 minutes. (2) Opioid withdrawal: Status: Acute Assessment and plan: Provide suboxone. (3) Cerebral cavernous malformation: Status: Chronic Assessment and plan: Asymptomatic. Given closed head injury, at a high risk of bleeding. Hold chemical DVT ppx - will treat with SCDs. (4) Closed head injury: Status: Acute Assessment and plan: Monitor mental status. Currently at baseline. (5) DVT prophylaxis: Status: Acute Assessment and plan: SCDs (6) Discharge planning issues: Status: Acute Assessment and plan: Full code Homeless Subjective Subjective Interval history since last seen: Patient is still being treated for acute alcohol withdrawal. Symptoms have improved since being loaded with phenobarbital. He is nearing his hard maximum a cumulative dose of 2.19 g. RASS score this morning was -4 because he was sound asleep. This afternoon his RASS score is 0 to -1. When he is awakened no he states he feels like he needs some Ativan because he feels shaky inside. He is not having any diaphoresis he is not having any hallucinations and his tremors are barely perceptible. I explained to the patient that I have concern about mixing benzodiazepines along with phenobarbital in addition to his Suboxone. I think some of his internal feeling of jitteriness was secondary to him missing his Suboxone dose this morning when he was sound asleep. He has since received his Suboxone dose for the day. Exam Narrative Exam Narrative: Alert and oriented x3 not hallucinating. Lungs are clear to auscultation Heart is regular rate and rhythm Abdomen soft nontender nondistended Extremities just a very faint tremor in his fingertips. Skin is nondiaphoretic. Objective Last Vital Signs Temp 37.4 C 04/19/22 23:25 Pulse 84 04/19/22 23:25 Resp 20 04/19/22 23:25 BP 112/70 04/19/22 23:25 Pulse Ox 94 04/19/22 23:25 Laboratory Results - last 24 hr 04/19/22 04/20/22 17:42 05:30 Sodium 135 L Potassium 4.1 Chloride 100 Carbon Dioxide 28.2 Anion Gap 6.8 BUN 12 Creatinine 0.9 Estimated GFR/1.73 m2 >= 60.00 Glucose 146 H Calcium 8.6 Magnesium 2.0 Phenobarbital 22.4
--- NOTE | 2022-04-20 13:51 | PHA.REVIEW ---
Pharmacy Admission Review - Admission Clinical Review (Last Reviewed 04/19/22 @ 07:09 by Mitchell Keane DO) Closed head injury (Acute) Opioid withdrawal (Acute) Alcohol withdrawal (Acute) Discharge planning issues (Acute) DVT prophylaxis (Acute) No Known Allergies Allergy (Unverified 04/17/22 14:15) Resuscitation Status Full Code Height 5 ft 10 in Weight 81.647 kg - Renal Dosing Renal Dosing: BUN 12 mg/dL (7-18) 04/20/22 05:30 Creatinine 0.9 mg/dL (0.70-1.30) 04/20/22 05:30 Medications needing adjustments: Reviewed (Crcl ~98 mL/min current meds okay) - Anticoagulation Anticoagulation: Hgb 14.6 g/dL (13.5-17.5) 04/19/22 07: Hct 43.6 % (40.0-50.0) 04/19/22 07:19 Plt Count 252 10^3/uL (130-400) 04/19/22 07:19 Creatinine 0.9 mg/dL (0.70-1.30) 04/20/22 05:30 DVT Prophylaxis: Reviewed (has SCDs ordered, chemical prophylaxis being held due to closed head injury/high risk of bleeding per H&P.) Therapeutic Anticoagulation: N/A - Opiate Usage Evaluate Pain Scale/Pains Meds: Reviewed Scheduled Bowel Reg ordered if on Opiates?: No (has PRN med ordered) - Relevant Labs Sodium 135 mmol/L (136-145) L 04/20/22 05:30 Potassium 4.1 mmol/L (3.5-5.1) 04/20/22 05:30 Chloride 100 mmol/L (98-107) 04/20/22 05:30 Magnesium 2.0 mg/dL (1.8-2.4) 04/20/22 05:30 Electrolytes, C-Reactive P, ESR: Reviewed - DM Control DM Control: Glucose 146 mg/dL (74-106) H 04/20/22 05:30 Insulin Dosing: N/A (BG a little elevated, no DM noted in pt's medical history, no A1c on file) - Heart Failure/[place] EF%, BRITTANY's, B-Blockers, Diuretics: N/A - BP Control If elevated: Reviewed (BP has been normal to high so far this admission) - Qtc Review If Elevated: N/A - IV to PO Switch IV Medications: Reviewed - Home Meds Home Med List reviewed: Reviewed (Few meds on the external med history that were filled this month but not listed on the pts med list [facility]. Nursing to check with pt on these when he wakes up. Provider's office was called to try to get a list but they noted things may have changes since they last saw the pt.) - Current meds Current Medication Order Review: Reviewed - Comments Comments/Follow Ups: Watch VS, labs and for med changes. Pt. has received almost the max dose of phenobarb per protocol, nursing aware.
[2022-04-20 14:30] VITALS: BP 106/64; PULSE 80; O2SAT 94
[2022-04-20 21:00] VITALS: BP 115/75; PULSE 76; RESP 18; TEMP 36.3; O2SAT 98
--- NOTE | 2022-04-20 22:21 | NUR.NOTE ---
Nursing Note: received report on this patient from icu nurse mario at 2054. viticulture teacher stated that patient was refusing to wear continuous o2 monitoring and telemetry and that md was aware. when patient got to med surg [id number], this rn talked to patient about monitoring. patient refused any type of monitoring. this rn explained telemetry and stated cant i just wear it in the morning? im not wearing it tonight? zinc furnace charger notified so they can notify md.
[2022-04-20] MEDS: Melatonin 3 MG TAB PO (23:00)
[2022-04-20 23:09] VITALS: BP 102/68; PULSE 80; RESP 16; TEMP 36.7; O2SAT 97
[2022-04-21 03:32] VITALS: BP 110/67; PULSE 79; RESP 18; TEMP 36.6; O2SAT 97
[2022-04-21 08:03] VITALS: BP 108/69; PULSE 74; RESP 16; TEMP 36; O2SAT 95
[2022-04-21] MEDS: Thiamine 100 MG TAB PO (08:10)
[2022-04-21] MEDS: Buprenorphine/Naloxone 8 mg/2 mg FILM 2 EACH SL (08:10)
[2022-04-21] MEDS: Multivitamin TAB 1 TAB PO (08:10)
[2022-04-21] MEDS: Folic Acid 1 MG TAB PO (08:10)
--- NOTE | 2022-04-21 08:54 | CMPROGNOTE_ITS ---
- If Service Date Differs Date of service: 04/21/22 Time of Service: 08:54 Care Management Progress Note Edgar met with a Pin Drafting Machine Tender today. CM faxed a referral to [facility] for him. Edgar signed out AMA a short time later.
[2022-04-21 11:35] VITALS: BP 110/72; PULSE 69; RESP 16; TEMP 36.1; O2SAT 97
--- NOTE | 2022-04-21 15:11 | NUR.NOTE ---
Nursing Note: this nurse was told by unit control clerk that pt had left AMA. Pt gave no warning he was wanting to do so. Pt stated he wanted to know if he was being DC and requested to speak to Case Management. CM spoke with pt and went to go speak with the Dr. Mack. During this time period the pt apparently got on the elevator and ran out of the building. It is to this nurses best understanding, the Pt had IAD intact. Staff went to get pt before leaving the building as the pt ran out of the building and out of the parking lot. per safety staff no longer pursued pt and contacted surveillance supervisor, , and security.
--- NOTE | 2022-04-21 16:00 | PDOC.CMDIS ---
- If Service Date Differs Date of service: 04/21/22 Time of Service: 16:01 Care Management Discharge Reason for Hospitalization: alcohol withdrawal Discharge Plan: Edgar PATEL
--- NOTE | 2022-04-21 16:56 | DSE_ITS ---
Date of service: 04/21/22 Time of Service: 16:56 DS: Diagnosis Discharge Diagnosis (1) Alcohol withdrawal: Status: Acute (2) Opioid withdrawal: Status: Acute (3) Cerebral cavernous malformation: Status: Chronic (4) Closed head injury: Status: Acute (5) DVT prophylaxis: Status: Acute (6) Discharge planning issues: Status: Acute Discharge Plan Disposition Patient Disposition: AGAINST MEDICAL ADVICE Condition: Stable Discharge Details Reason For Visit: Alcohol Intoxication and Withdrawl Admit Date/Time: 04/19/22 09:25 Admit Provider: Myrtle العراقي Attending Provider: Myrtle العراقي [facility]: 51 male with h/o alcohol and opiate abuse, admitted 04/17 with alcohol withdrawal and suicidal ideation. Started on benzodiazepine regimren for withdrawal then transitioned to phenobarbital. On hospital day 2 patient left AMA. Home Meds and New Rx's Prescriptions: No Action fluoxetine 40 mg capsule 40 mg PO DAILY lamotrigine 100 mg tablet 100 mg PO DAILY aripiprazole 5 mg tablet 5 mg PO DAILY buprenorphine-naloxone 8-2 mg Tablet, Sublingual 2 tab SUBLINGUAL DAILY Discharge Instructions Activity:: Activity as Tolerated Equipment/Supplies:: No Equipment Needed Diet:: Normal Diet Discharge Orders Discharge Orders: Discharge Order (Routine); Ordered 04/21/22 Ordered By: Sedrick Mack Discharge Data Discharge Date/Time-TO BE ENTERED AT DEPARTURE: 04/21/22 14:54 Discharge Comment: AMNeelam DS: Summary Time Spent with Patient providing and/or coordinating discharge services: Less than 30 minutes Specific discharge activities: none Status at Discharge Functional status at discharge: independent ambulation Overall status at discharge: patient is back to baseline Mental Status: mental status grossly normal Speech and Movement: speech and movement normal Mood: congruent mood Affect: normal affect Exam Narrative Exam Narrative: patient left AMA w/out being seen; no exam done today Psych Mental Status: mental status grossly normal Speech and Movement: speech and movement normal Mood: congruent mood Affect: normal affect DS: Data Vitals/I&O Vitals and I&O: Vital Signs Temperature 36.1 C L 04/21/22 11:35 Temperature Source Tympanic 04/21/22 11:35 Pulse 69 04/21/22 11:35 Pulse Rhythm Regular 04/20/22 21:00 Pulse 105 H 04/19/22 15:30 Respiratory Rate 16 04/21/22 11:35 Respiratory Effort 04/20/22 21:00 Respiratory Depth Normal 04/20/22 21:00 Respiratory Pattern Normal 04/20/22 21:00 Blood Pressure 110/72 04/21/22 11:35 Blood Pressure Mean 72 04/20/22 13:38 Blood Pressure Position Sitting 04/19/22 06:58 Pulse Oximetry 97 04/21/22 11:35 Oxygen Delivery Method Room Air 04/21/22 11:35 Oxygen Flow Rate 0 04/21/22 11:35 Pain Level 0 04/21/22 08:03 Intake & Output 04/20/22 04/21/22 04/21/22 23:59 11:59 23:59 Intake Total 740 / 740 Output Total 500 / 500 400 / 400 Balance -500 / 600 -400 / 340 740 / 340 Intake: Oral 740 / 740 Output: Urine 500 / 500 400 / 400 Other: Urine Color Yellow Urine Appearance Clear Voiding Methods Urinal Urinal PFSH All Active Problems (Updated 04/21/22 @ 17:30 by LIVIA Guzman) Alcohol intoxication (Acute) Closed head injury (Acute) Opioid withdrawal (Acute) ETOH abuse (Chronic) Alcohol withdrawal (Acute) Discharge planning issues (Acute) DVT prophylaxis (Acute) Suicidal ideation (Acute) Polysubstance abuse (Chronic) Alcohol withdrawal seizure (Acute) Cerebral cavernous malformation (Chronic) Homelessness (Chronic) Head injury (Acute) Medical History Alcohol abuse Alcohol withdrawal seizure Social History Smoking/Tobacco Use Status: Current every day Tobacco Type: cigarettes Smoking risk assessment performed?: Yes Alcohol Intake: current Alcohol Intake frequency: 3 or more drinks per day Drug use: Daily Substance use type: crack/cocaine Do you feel safe at home: Yes Do you feel safe in your relationship?: Yes
== END 2022-04-21 14:54 | disposition left against medical advice (07) | DRG 894 ==
LOC: ER 13:10 → ICU 13:54 → MS 04-20 21:05
PROVIDERS: Student in an Organized Health Care Education/Training Program; Admitting Provider Internal Medicine; Emergency Provider Student in an Organized Health Care Education/Training Program; PCP Nurse Practitioner Family; Visit Provider Internal Medicine
DX: F10.229 Alcohol dependence with intoxication, unspecified (principal); Q28.3 Other malformations of cerebral vessels; Y90.6 Blood alcohol level of 120-199 mg/100 ml; F10.239 Alcohol dependence with withdrawal, unspecified; F19.10 Other psychoactive substance abuse, uncomplicated; F11.13 Opioid abuse with withdrawal; S09.8XXA Other specified injuries of head, initial encounter; Z59.02 Unsheltered homelessness; F17.210 Nicotine dependence, cigarettes, uncomplicated; W19.XXXA Unspecified fall, initial encounter
CPT/HCPCS: 36415; 80048; 80053; 80307; 87635; 96361; 96365; 96366; 96368; 96376; 99285; 70450; 72125; 80184; 80320; 83735; 85025; 99223; 99238; 99291; J2560

== ENCOUNTER 2022-04-21 15:16 | Emergency (ER) | payer MEDICAID, SELFPAY ==
[2022-04-21 15:22] VITALS: BP 126/88; PULSE 81; RESP 19; TEMP 36.7; O2SAT 99
--- NOTE | 2022-04-21 16:12 | NUR.NOTE ---
Nursing Note: Removed IV site that patient already had in right AC from previous hospital visit (patient left AMA without allowing staff to remove IV the first time). catheter was kinked and not flushing.
[2022-04-21 16:13] LABS: Absolute Basophil Count 0.03 10^3/uL (0.0-0.2); Absolute Eosinophil Count 0.16 10^3/uL (0.0-0.7); Absolute Lymphocyte Count 1.93 10^3/uL (1.2-3.4); Absolute Monocyte Count 0.64 10^3/uL (0.1-0.8); Absolute Neutrophil Count 5.39 10^3/uL (1.2-6.7); Basophils % 0.4; Eosinophils % 1.9; HCT 43.3 % (40.0-50.0); HGB 14.9 g/dL (13.5-17.5); Immature Grans % 1.2; Lymphocytes % 23.4; MCHC 34.4 % (32.0-36.0); MCV 93 fL (80-95); MPV 10.6 fL (8.0-11.0); Monocytes % 7.8; Neutrophils % 65.3; Platelet Count 251 10^3/uL (130-400); RBC 4.65 10^6/uL (4.36-5.78); RDW 14.2 % (11.8-14.1); RDW-SD 48.6 fL; WBC 8.25 10^3/uL (4.4-10.8)
[2022-04-21 16:28] LABS: ETHANOL BLOOD 237.2 mg/dL (<10)
[2022-04-21 16:30] LABS: ALT 163 U/L (16-63); AST 54 U/L (15-37); Albumin 3.4 g/dL (3.4-5.0); Alkaline Phosphatase 66 U/L (46-116); Anion Gap 11.2 mmol/L (3-11); BUN 15 mg/dL (7-18); Bilirubin, Total 0.2 mg/dL (0.2-1.0); CO2 24.8 mmol/L (21.0-32.0); Chloride 99 mmol/L (98-107); Glucose 118 mg/dL (74-106); Lipase 55 U/L (73-393); Potassium 4.3 mmol/L (3.5-5.1); Sodium 135 mmol/L (136-145); Total Protein 7.8 g/dL (6.4-8.2)
[2022-04-21 16:33] LABS: Source Nasal/Nares
--- NOTE | 2022-04-21 16:34 | ED.GENADUL_ITS ---
Discharge Plan Disposition Patient Disposition: [facility] Condition: Stable Discharge Details Clinical Impression: Alcohol intoxication, Suicidal ideation Primary Care Provider: TEMI MANDUJANO ED Provider: Sedrick Burkett Home Meds and New Rx's Prescriptions: Continued fluoxetine 40 mg capsule 40 mg PO DAILY lamotrigine 100 mg tablet 100 mg PO DAILY aripiprazole 5 mg tablet 5 mg PO DAILY buprenorphine-naloxone 8-2 mg Tablet, Sublingual 2 tab SUBLINGUAL DAILY Discharge Instructions Instructions: Alcohol Intoxication (ED) Additional Instructions: At this time you have been provided with a medical screening examination and no emergent process has been identified. You have been evaluated by mental health given your poor judgment and acute intoxication. It has been deemed that you are an incapacitated person in her current state and given this you will be released into police custody. Please watch for new or worsening symptoms and return to the ER for any concerns. Please stop drinking alcohol. Tomorrow once your alcohol level is 0 you will be reassessed by the [facility] mental health team. Medical Decision Making 51-year-old gentleman with history of polysubstance abuse, alcohol abuse, alcohol withdrawal seizure, presenting to the ER having just left AMA now requesting his bed placement. He denies any alcohol use since leaving the [facility]. He has no acute medical concerns or complaints. He shows no signs of alcohol withdrawal currently and I suspect that he is in fact intoxicated. Will obtain IV access, give IV fluid, obtain routine screening laboratory values and reach out to our hospitalist team to see if they would like to continue his phenobarbital as I believe he was on this earlier today but I do not see a note from today in our system. Patient is again requesting either Ativan or phenobarbital but I see no signs of seizure activity or alcohol withdrawal that would require emergent IV medications. Laboratory values reveal an alcohol level of 237. There is no obvious emergent process identified in his laboratory values. Given he left the hospital from the ICU AMA earlier today I reached out to our hospitalist team, spoke with Dr. Mack. He knows the patient well, reports that he does not require hospitalization and earlier today had a CIWA score of 0, given his hospitalization and phenobarbital, not at risk for withdrawal and is currently intoxicated. He recommends that the patient becomes an incapacitated person and be released into the care of law enforcement. I then spoke with Tamika from [facility] regarding the patient's recent hospitalization, poor judgment, and recurrent acute intoxication. She will come to the ER for evaluation. Patient ripped his IV out. He then was able to ambulate steadily back to his exam room and was able to stand to urinate. He shows no evidence of withdrawal Tamika from [facility] discontinued services onsite to evaluate patient and complete the ICP paperwork. Please see her note. Patient refused to engage, admitted SI to Tamika, did not admit this to me. While enforcement contacted and he will be released into their custody Standard discharge and return precautions were provided. Patient understands, is agreeable to this plan, and has no additional questions or concerns upon discharge. This documentation was generated using [employer] dictation system, please disregard any oddities of phrase or misspellings. Medical Records Medical records reviewed: Yes I reviewed the patient's medical records. Lab Data Lab results reviewed: Yes I reviewed the patient's lab results. Labs: Laboratory Tests Range/Units 04/21/22 04/21/22 04/21/22 16:00 16:00 16:00 WBC (4.4-10.8) 10^3/uL 8.25 RBC (4.36-5.78) 10^6/uL 4.65 Hgb (13.5-17.5) g/dL 14.9 Hct (40.0-50.0) % 43.3 MCV (80-95) fL 93 MCH (27.0-33.0) pg 32.0 MCHC (32.0-36.0) % 34.4 RDW (11.8-14.1) % 14.2 H Plt Count (130-400) 10^3/uL 251 MPV (8.0-11.0) fL 10.6 Immature Gran % 1.2 Neutrophils % 65.3 Lymphocytes % 23.4 Monocytes % 7.8 Eosinophils % 1.9 Basophils % 0.4 Nucleated RBC % (0.0-0.3) % 0.0 Absolute Neutrophils (1.2-6.7) 10^3/uL 5.39 Absolute Lymphocytes (1.2-3.4) 10^3/uL 1.93 Absolute Monocytes (0.1-0.8) 10^3/uL 0.64 Absolute Eosinophils (0.0-0.7) 10^3/uL 0.16 Absolute Basophils (0.0-0.2) 10^3/uL 0.03 Sodium (136-145) mmol/L 135 L Potassium (3.5-5.1) mmol/L 4.3 Chloride (98-107) mmol/L 99 Carbon Dioxide (21.0-32.0) mmol/L 24.8 Anion Gap (3-11) mmol/L 11.2 H BUN (7-18) mg/dL 15 Creatinine (0.70-1.30) mg/dL 1.0 Estimated GFR/1.73 m2 (mL/min/1.73m2) >= 60.00 Glucose (74-106) mg/dL 118 H Calcium (8.5-10.1) mg/dL 9.0 Total Bilirubin (0.2-1.0) mg/dL 0.2 AST (15-37) U/L 54 H ALT (16-63) U/L 163 H Alkaline Phosphatase (46-116) U/L 66 Total Protein (6.4-8.2) g/dL 7.8 Albumin (3.4-5.0) g/dL 3.4 Lipase (73-393) U/L 55 Ethyl Alcohol (<10) mg/dL 237.2 H COVID-19 Source Range/Units 04/21/22 16:12 WBC (4.4-10.8) 10^3/uL RBC (4.36-5.78) 10^6/uL Hgb (13.5-17.5) g/dL Hct (40.0-50.0) % MCV (80-95) fL MCH (27.0-33.0) pg MCHC (32.0-36.0) % RDW (11.8-14.1) % Plt Count (130-400) 10^3/uL MPV (8.0-11.0) fL Immature Gran % Neutrophils % Lymphocytes % Monocytes % Eosinophils % Basophils % Nucleated RBC % (0.0-0.3) % Absolute Neutrophils (1.2-6.7) 10^3/uL Absolute Lymphocytes (1.2-3.4) 10^3/uL Absolute Monocytes (0.1-0.8) 10^3/uL Absolute Eosinophils (0.0-0.7) 10^3/uL Absolute Basophils (0.0-0.2) 10^3/uL Sodium (136-145) mmol/L Potassium (3.5-5.1) mmol/L Chloride (98-107) mmol/L Carbon Dioxide (21.0-32.0) mmol/L Anion Gap (3-11) mmol/L BUN (7-18) mg/dL Creatinine (0.70-1.30) mg/dL Estimated GFR/1.73 m2 (mL/min/1.73m2) Glucose (74-106) mg/dL Calcium (8.5-10.1) mg/dL Total Bilirubin (0.2-1.0) mg/dL AST (15-37) U/L ALT (16-63) U/L Alkaline Phosphatase (46-116) U/L Total Protein (6.4-8.2) g/dL Albumin (3.4-5.0) g/dL Lipase (73-393) U/L Ethyl Alcohol (<10) mg/dL COVID-19 Source Nasal/Nares HPI General Mode of arrival: ambulatory . Date/Time Provider Initiated Documentation: 04/21/22 15:40 . Limitations to Documentation: no limitations . Information obtained by: patient . HPI Narrative: This is a 51-year-old gentleman, with a past medical history of polysubstance abuse, alcohol withdrawal seizure, homelessness, cerebral cavernosum malformation, presenting to the ER having just left the hospital AMA to go outside and smoke, presents back to the ER stating he would like to be admitted once again for potential alcohol withdrawal and seizure. Patient denies any alcohol or drugs since leaving the hospital promise but did leave with his IV intact. Patient is requesting that we give him either IV Ativan or phenobarbital. He denies any acute medical concerns or complaints. Denies headache, visual change, neck pain, chest pain, shortness of breath, abdominal pain, nausea, vomiting, numbness, tingling, weakness. Related Data Home Medications Medication Instructions Recorded Confirmed buprenorphine 8 mg-naloxone 2 mg 2 tab sublingual DAILY 04/13/22 04/21/22 sublingual tablet aripiprazole 5 mg tablet 5 mg PO DAILY 04/20/22 04/21/22 fluoxetine 40 mg capsule 40 mg PO DAILY 04/20/22 04/21/22 lamotrigine 100 mg tablet 100 mg PO DAILY 04/20/22 04/21/22 Allergies Allergy/AdvReac Type Severity Reaction Status Date / Time No Known Allergies Allergy Unverified 04/21/22 15:27 General Stated Complaint: GenMedical ADRIAN: 2 Review of Systems Constitutional Constitutional: Denies fatigue, Denies fever(s), Denies headache(s) and Denies weakness Eyes Eyes: Denies change in vision ENT Ears, Nose, Mouth, and Throat: Denies headache(s) and Denies neck pain Cardiovascular Cardiovascular: Denies chest pain and Denies dyspnea Respiratory Respiratory: Denies cough and Denies dyspnea Gastrointestinal Gastrointestinal: Denies abdominal pain, Denies nausea and Denies vomiting Musculoskeletal Musculoskeletal: Denies back pain, Denies neck pain, Denies numbness and Denies tingling Integumentary/Breasts Skin/Breast: Denies rash Neurologic Neurologic: Denies headache(s), Denies numbness, Denies tingling and Denies weakness Endocrine Endocrine: Denies fatigue Hematologic/Lymphatic Hematologic/Lymphatic: Denies easy bleeding and Denies easy bruising PFSH All Active Problems (Updated 04/21/22 @ 17:30 by LIVIA Guzman) Alcohol intoxication (Acute) Closed head injury (Acute) Opioid withdrawal (Acute) ETOH abuse (Chronic) Alcohol withdrawal (Acute) Discharge planning issues (Acute) DVT prophylaxis (Acute) Suicidal ideation (Acute) Polysubstance abuse (Chronic) Alcohol withdrawal seizure (Acute) Cerebral cavernous malformation (Chronic) Homelessness (Chronic) Head injury (Acute) Medical History Alcohol abuse Alcohol withdrawal seizure Social History Smoking/Tobacco Use Status: Current every day Tobacco Type: cigarettes Smoking risk assessment performed?: Yes Alcohol Intake: current Alcohol Intake frequency: 3 or more drinks per day Drug use: Daily Substance use type: crack/cocaine Do you feel safe at home: Yes Do you feel safe in your relationship?: Yes Exam Const General: cooperative, comfortable and no acute distress Orientation: alert, awake and oriented x3 Other: EtOH/substance on breath HENMT Head: normal to inspection, normocephalic and atraumatic Face and sinus: normal facial exam Mouth: moist mucous membranes Eyes General: appearance normal, both eyes and all related structures Conjunctivae: conjunctivae normal Neck Neck: normal visual inspection, full ROM, trachea midline, supple and nontender Resp Effort & Inspection: normal respiratory effort and able to speak in complete sentences Auscultation: clear to auscultation bilaterally Cardio Rate: regular rate Rhythm: regular rhythm GI Palpation: soft, not firm, no guarding, no pulsatile masses and nontender Back/Spine/Pelvis Back: No back tenderness Skin General skin exam: no rashes or lesions noted Neuro General: patient alert, patient awake, patient oriented x3, moves all extremities and no focal motor deficits Cognition: normal cognition Speech: speech normal Gait: ataxic (Slightly) Motor: muscle tone normal throughout Sensory Exam: no sensory deficits noted Extrem General: full ROM and capillary refill normal Psych Appearance: grossly normal Mental Status: mental status grossly normal Course Vital Signs Vital signs: Vital Signs Temperature 36.7 C 04/21/22 15:22 Pulse 81 04/21/22 15:22 Respiratory Rate 19 04/21/22 15:22 Blood Pressure 126/88 04/21/22 15:22 Pulse Oximetry 99 04/21/22 15:22 Temperature 36.7 C 04/21/22 15:22 Temperature Source Oral 04/21/22 15:22 Pulse 81 04/21/22 15:22 Respiratory Rate 19 04/21/22 15:22 Respiratory Effort 04/21/22 15:53 Blood Pressure 126/88 04/21/22 15:22 Blood Pressure Position Sitting 04/21/22 15:22 Pulse Oximetry 99 04/21/22 15:22 Oxygen Delivery Method Room Air 04/21/22 15:22 Oxygen Flow Rate 0 04/21/22 15:22 Pain Level 0 04/21/22 15:22 Lab/Test Results Lab/Test Results: Laboratory Tests Range/Units 04/21/22 04/21/22 04/21/22 16:00 16:00 16:00 WBC (4.4-10.8) 10^3/uL 8.25 RBC (4.36-5.78) 10^6/uL 4.65 Hgb (13.5-17.5) g/dL 14.9 Hct (40.0-50.0) % 43.3 MCV (80-95) fL 93 MCH (27.0-33.0) pg 32.0 MCHC (32.0-36.0) % 34.4 RDW (11.8-14.1) % 14.2 H Plt Count (130-400) 10^3/uL 251 MPV (8.0-11.0) fL 10.6 Immature Gran % 1.2 Neutrophils % 65.3 Lymphocytes % 23.4 Monocytes % 7.8 Eosinophils % 1.9 Basophils % 0.4 Nucleated RBC % (0.0-0.3) % 0.0 Absolute Neutrophils (1.2-6.7) 10^3/uL 5.39 Absolute Lymphocytes (1.2-3.4) 10^3/uL 1.93 Absolute Monocytes (0.1-0.8) 10^3/uL 0.64 Absolute Eosinophils (0.0-0.7) 10^3/uL 0.16 Absolute Basophils (0.0-0.2) 10^3/uL 0.03 Sodium (136-145) mmol/L 135 L Potassium (3.5-5.1) mmol/L 4.3 Chloride (98-107) mmol/L 99 Carbon Dioxide (21.0-32.0) mmol/L 24.8 Anion Gap (3-11) mmol/L 11.2 H BUN (7-18) mg/dL 15 Creatinine (0.70-1.30) mg/dL 1.0 Estimated GFR/1.73 m2 (mL/min/1.73m2) >= 60.00 Glucose (74-106) mg/dL 118 H Calcium (8.5-10.1) mg/dL 9.0 Total Bilirubin (0.2-1.0) mg/dL 0.2 AST (15-37) U/L 54 H ALT (16-63) U/L 163 H Alkaline Phosphatase (46-116) U/L 66 Total Protein (6.4-8.2) g/dL 7.8 Albumin (3.4-5.0) g/dL 3.4 Lipase (73-393) U/L 55 Ethyl Alcohol (<10) mg/dL 237.2 H COVID-19 Source Range/Units 04/21/22 16:12 WBC (4.4-10.8) 10^3/uL RBC (4.36-5.78) 10^6/uL Hgb (13.5-17.5) g/dL Hct (40.0-50.0) % MCV (80-95) fL MCH (27.0-33.0) pg MCHC (32.0-36.0) % RDW (11.8-14.1) % Plt Count (130-400) 10^3/uL MPV (8.0-11.0) fL Immature Gran % Neutrophils % Lymphocytes % Monocytes % Eosinophils % Basophils % Nucleated RBC % (0.0-0.3) % Absolute Neutrophils (1.2-6.7) 10^3/uL Absolute Lymphocytes (1.2-3.4) 10^3/uL Absolute Monocytes (0.1-0.8) 10^3/uL Absolute Eosinophils (0.0-0.7) 10^3/uL Absolute Basophils (0.0-0.2) 10^3/uL Sodium (136-145) mmol/L Potassium (3.5-5.1) mmol/L Chloride (98-107) mmol/L Carbon Dioxide (21.0-32.0) mmol/L Anion Gap (3-11) mmol/L BUN (7-18) mg/dL Creatinine (0.70-1.30) mg/dL Estimated GFR/1.73 m2 (mL/min/1.73m2) Glucose (74-106) mg/dL Calcium (8.5-10.1) mg/dL Total Bilirubin (0.2-1.0) mg/dL AST (15-37) U/L ALT (16-63) U/L Alkaline Phosphatase (46-116) U/L Total Protein (6.4-8.2) g/dL Albumin (3.4-5.0) g/dL Lipase (73-393) U/L Ethyl Alcohol (<10) mg/dL COVID-19 Source Nasal/Nares PAWSS Have you Been Recently Intoxicated or Drunk Within the Last 30 days?: Yes Have you Ever Experienced Previous Episodes of Alcohol Withdrawal?: Yes Have you ever Experienced Withdrawal Seizures?: Unable to Obtain Have you ever Experienced Delirium Tremens(DT)s?: Yes Have you ever undergone Alcohol Rehabilitation Treatment (i.e, inpt ot ou tpatient treatment programs)?: Unable to Obtain Have you ever Experienced Blackouts?: Yes Have you ever Combined Alcohol with other Downers within the last 90 days?: Unable to Obtain Have you ever Combined Alcohol with any other Substance of Abuse during the last 90 days?: Unable to Obtain Positive Blood Alcohol level on Presentation? [PCS.BAL]: Unable to Obtain Evidence of Increased Autonomic Activity (i.e. HR>120, tremor, sweating, agitation, nausea)?: Yes Result: 5
[2022-04-21 17:34] LABS: Bilirubin Negative (Negative); Blood Negative (Negative); Clarity Clear (Clear); Glucose Negative (Negative); Ketones Negative (Negative); Leukocyte Esterase Negative (Negative); Nitrite Negative (Negative); Specific Gravity 1.015 (1.005-1.025); Urobilinogen 0.2 EU/dL (Up TO 0.2)
[2022-04-21 17:42] LABS: COVID-19 PCR Negative (Negative)
[2022-04-21 17:54] LABS: *AMPHETAMINES SCREEN URINE Negative (Negative); *BARBITURATES SCREEN URINE Positive (Negative); *BENZODIAZEPINES SCREEN URINE Negative (Negative); Cannabinoids THC Negative (Negative); Cocaine Screen,Urine Negative (Negative); METHADONE URINE SCREEN Negative (Negative); OPIATES URINE SCREEN Negative (Negative)
[2022-04-21 17:55] LABS: Tricyclic Antidepressants Negative (Negative)
== END 2022-04-21 17:42 | disposition home or self-care (01) ==
PROVIDERS: Emergency Provider Physician Assistant; PCP Nurse Practitioner Family
DX: F10.129 Alcohol abuse with intoxication, unspecified (principal); F17.210 Nicotine dependence, cigarettes, uncomplicated; R45.851 Suicidal ideations; Z20.822 Contact with and (suspected) exposure to COVID-19; Y90.7 Blood alcohol level of 200-239 mg/100 ml
CPT/HCPCS: 36415; 80053; 80307; 83690; 87635; 96360; 99285; 80320; 81003; 85025; 99284

== ENCOUNTER 2022-04-22 08:49 | Observation (INO) | payer MEDICAID, SELFPAY ==
[2022-04-22 08:57] VITALS: BP 117/79; PULSE 71; RESP 14; TEMP 36.1; O2SAT 98
--- NOTE | 2022-04-22 09:05 | ED.GENADUL_ITS ---
Discharge Plan Disposition Patient Disposition: [facility] INPATIENT Condition: Stable Discharge Details Clinical Impression: Suicidal ideation Admit Date/Time: 04/22/22 14:48 Admit Provider: Sedrick Mack Attending Provider: Sedrick Mack Primary Care Provider: TEMI MANDUJANO ED Provider: Isabela Haynes Medical Decision Making 51-year-old male past medical history of cerebral cavernous malformation, polysubstance abuse, alcohol abuse presents to the ER with chief complaint of suicidal ideation. Patient was discharged and sent to correctional facility [facility] yesterday. This morning he is complaining of suicidal ideations. He reports he does have a plan to jump off a bridge or something because the pills did not work. She reports that yesterday she took a bunch of medications and drink alcohol when he attempts to commit suicide. She was also previously admitted to the hospital for alcohol withdrawal. Upon arrival he is alert and oriented x3, no evidence of alcohol withdrawal. No tremors noted. Vital signs are stable he is nontachycardic heart rate is 71. At this time patient is medically cleared. Patient has been observed facility the last 12 to 24 hours. No signs of alcohol withdrawal at this time. Will contact mental health for reeval. At this time patient is calm and cooperative. He Patient is asking for something for the shakes. However he does not have any tremors noted. 0945: ANUSHA paged for eval. 1029: Spoke with ANUSHA who reports patient is seeking voluntary psychiatric inpatient treatment, will order UDS and Covid test. Patient is requesting medication for the shakes. Lorazepam 1 mg 3 times daily as needed ordered. Patient's daily medications ordered. He reports he has not taken his medications today including Suboxone. He has remained calm and cooperative is eating a lunch tray. Sitter is at bedside he is in line of sight of nurses station in paper scrubs. 1330: Hospitalist paged for possible admission. Pending voluntary psychiatric placement. 1447: Spoke with Hospitalist team regarding patient, he agrees to accept patient for admission pending psychiatric inpatient placement. Medical Records Medical records reviewed: Yes I reviewed the patient's medical records. Medical records narrative: This is the patient's fifth visit this month. Was seen here in the department yesterday on the and sent to the [employer] tank. He has been admitted up in the hospital and left AMA. HPI General Mode of arrival: EMS . Date/Time Provider Initiated Documentation: 04/22/22 08:52 . Limitations to Documentation: no limitations . Information obtained by: patient, EMS, RN notes reviewed and old records reviewed . HPI Narrative: 51-year-old male past medical history of cerebral cavernous malformation, polysubstance abuse, alcohol abuse presents to the ER with chief complaint of suicidal ideation. Patient was discharged and sent to correctional facility [facility] yesterday. This morning he is complaining of suicidal ideations. He reports he does have a plan to jump off a bridge or something because the pills did not work. She reports that yesterday she took a bunch of medications and drink alcohol when he attempts to commit suicide. She was also previously admitted to the hospital for alcohol withdrawal. Upon arrival he is alert and oriented x3, no evidence of alcohol withdrawal. No tremors noted. Vital signs are stable he is nontachycardic heart rate is 71. Related Data Home Medications Medication Instructions Recorded Confirmed buprenorphine 8 mg-naloxone 2 mg 2 tab sublingual DAILY 04/13/22 04/22/22 sublingual tablet aripiprazole 5 mg tablet 5 mg PO DAILY 04/20/22 04/22/22 fluoxetine 40 mg capsule 40 mg PO DAILY 04/20/22 04/22/22 lamotrigine 100 mg tablet 100 mg PO DAILY 04/20/22 04/22/22 fluoxetine 40 mg capsule (Prozac) 40 mg PO DAILY 04/22/22 04/22/22 quetiapine 50 mg tablet 100 mg PO DAILY 04/22/22 04/22/22 Allergies Allergy/AdvReac Type Severity Reaction Status Date / Time No Known Allergies Allergy Unverified 04/22/22 09:00 General Stated Complaint: PsychEval ADRIAN: 2 Review of Systems All systems reviewed & are unremarkable except as noted in HPI and below Psychiatric Psychiatric: Reports depression, Denies visual hallucinations, Denies tactile hallucinations, Denies homicidal ideation and Reports suicidal ideation [facility] All Active Problems (Updated 04/22/22 @ 14:48 by Isabela Haynes NP) Alcohol intoxication (Acute) Closed head injury (Acute) ETOH abuse (Chronic) Suicidal ideation (Acute) Polysubstance abuse (Chronic) Alcohol withdrawal seizure (Acute) Cerebral cavernous malformation (Chronic) Homelessness (Chronic) Head injury (Acute) Medical History Alcohol abuse Alcohol withdrawal seizure Social History Smoking/Tobacco Use Status: Current every day Tobacco Type: cigarettes Smoking risk assessment performed?: Yes Alcohol Intake: current Alcohol Intake frequency: 3 or more drinks per day Drug use: Daily Substance use type: crack/cocaine Do you feel safe at home: Yes Do you feel safe in your relationship?: Yes Exam Narrative Exam Narrative: Constitutional: Alert and oriented x3. Appears stated age. Normal body habitus. Head: Normocephalic, no trauma. Eyes: Pupils PERRL, Red reflex noted, EOM's intact. Eyelids symmetrical without lesions, discharge, or swelling. ENT: Bilateral TM's WNL, External ear normal to inspection, no mastoid TTP, swelling, or erythema, Nasal turbinates WNL, no nasal discharge. Normal dentition, Posterior pharynx WNL, no exudate. Chest: RRR, Normal S1, S2, distal pulses intact. Resp: Lungs clear to auscultation bilaterally, no wheezes, rales, or rhonchi. Abdomen: Soft, non-distended, Normoactive bowel sounds all 4 quads. Nontender to palpation all 4 quadrants. Musculoskeletal: Normal gait, 5/5 strength to all four extremities. Skin: No suspicious rashes or lesions. Capillary refill less than 2 sec. Neurologic: Cranial nerves II-XII intact. Alert and oriented x 3. Motor: No deficits noted. Sensory: Intact bilaterally all 4 extremities. Reflexes: DTR's intact bilaterally.. No tremors noted. Hematologic/Lymphatic: No ecchymosis, no lymphadenopathy. Psych Appearance: well kempt Speech and Movement: speech and movement normal Affect: sad and indifferent Attitude: cooperative Thought Content: no hallucinations, no homicidality and suicidality Insight: limited Judgment: limited Course Vital Signs Vital signs: Vital Signs Temperature 36.1 C L 04/22/22 08:57 Pulse 71 04/22/22 08:57 Respiratory Rate 14 04/22/22 08:57 Blood Pressure 117/79 04/22/22 08:57 Pulse Oximetry 98 04/22/22 08:57 Temperature 36.1 C L 04/22/22 08:57 Temperature Source Temporal Artery Scan 04/22/22 08:57 Pulse 71 04/22/22 08:57 Respiratory Rate 14 04/22/22 08:57 Respiratory Effort Non-Labored 04/22/22 09:02 Blood Pressure 117/79 04/22/22 08:57 Blood Pressure Position Supine 04/22/22 08:57 Pulse Oximetry 98 04/22/22 08:57 Oxygen Delivery Method Room Air 04/22/22 08:57 Oxygen Flow Rate 0 04/22/22 08:57 Pain Level 8 04/22/22 08:57 Comment 04/22/22 08:57 PAWSS Have you Been Recently Intoxicated or Drunk Within the Last 30 days?: Yes Have you Ever Experienced Previous Episodes of Alcohol Withdrawal?: Yes Have you ever Experienced Withdrawal Seizures?: Yes Have you ever Experienced Delirium Tremens(DT)s?: Yes Have you ever undergone Alcohol Rehabilitation Treatment (i.e, inpt ot outpatient treatment programs)?: Yes Have you ever Experienced Blackouts?: Yes Have you ever Combined Alcohol with other Downers within the last 90 days?: No Have you ever Combined Alcohol with any other Substance of Abuse during the last 90 days?: No Positive Blood Alcohol level on Presentation? [PCS.BAL]: No Evidence of Increased Autonomic Activity (i.e. HR>120, tremor, sweating, agitation, nausea)?: Yes Result: 7
[2022-04-22] MEDS: LORazepam 1 MG TAB PO (10:35)
[2022-04-22 10:39] LABS: Source Nasal/Nares
--- NOTE | 2022-04-22 10:46 | PDOC.MHCN_ITS ---
Date of service: 04/22/22 Time of Service: 10:30 Mental Health Crisis Note Presenting Issue How did you arrive at the ED and why did you come: Client came to the ED after telling ASA Screener Mitali Payne he was suicidal. Client had to wait in the ED until he was medically cleared. Precipitating Factors Client is actively endorsing suicidal ideation with plan, intent, and access to means outside of the ED. Client was unwilling to discuss this plan. Disposition BEHAVIOR: Client's behavior is unremarkable. EYE CONTACT: Client had good eye contact. MOOD: Client described his mood as not good. Client appeared stressed, depressed, and anxious. AFFECT: Congruent with mood. APPETITE: Client reprots he has little to no appetite but has been able to eat some while at the hospital. SLEEP(trouble falling/staying asleep: Client reports he has been sleeping too much. Plan Client will continue to wait in the ED until voluntary placement is found. Referrals will be sent to all four hospitals today. Talked to the TELEMETRY NURSE and she will fax over the labs, covid test, and doctor's notes for referrals. Signature Clinician's Name/Title: Zena Deng, Cafe Helper, [facility]
[2022-04-22] MEDS: QUEtiapine 100 MG TAB PO (10:55)
[2022-04-22] MEDS: Buprenorphine/Naloxone 8 mg/2 mg FILM 2 EACH SL (10:56)
[2022-04-22 10:57] LABS: *AMPHETAMINES SCREEN URINE Negative (Negative); *BARBITURATES SCREEN URINE Positive (Negative); *BENZODIAZEPINES SCREEN URINE Negative (Negative); Cannabinoids THC Negative (Negative); Cocaine Screen,Urine Negative (Negative); METHADONE URINE SCREEN Negative (Negative); OPIATES URINE SCREEN Negative (Negative); Tricyclic Antidepressants Negative (Negative)
[2022-04-22] MEDS: FLUoxetine 20 MG CAP 4 MG PO (11:03)
[2022-04-22] MEDS: lamoTRIgine 100 MG TAB PO (11:03)
[2022-04-22] MEDS: FLUoxetine 20 MG CAP PO (11:06)
[2022-04-22 11:30] LABS: COVID-19 PCR Negative (Negative)
[2022-04-22 12:22] VITALS: BP 135/80; PULSE 104; TEMP 36.2; O2SAT 98
--- NOTE | 2022-04-22 13:21 | PDOC.CMSAFED ---
- If Service Date Differs Date of service: 04/22/22 Time of Service: 13:22 Care Management Safety Plan Status: Voluntary - Reason for Wait Reason for Wait: Inpatient Admission CHIEF COMPLAINT: Edgar presents in the ED for the fifth time in the last 10 days. Today he is reporting suicidal ideation with intent and plan of taking a bunch of medications and drinking alcohol. He was evaluated by Leah of [facility] this morning and was found appropriate for a voluntary psych hospitalization. Edgar has a history of polysubstance abuse and homelessness. Referrals are faxed to [facility], [facility], and [facility] for review. Edgar will remain at [facility] voluntarily and will be reassessed daily by [facility] until he can enter into a safety plan or a psych bed can be secured for him. CM will continue to follow. VOLUNTARY FOR INPATIENT PSYCHIATRIC STABILIZATION. Patient is appropriate in all interactions since arriving at [facility]; Pt has demonstrated appropriate coping and communication skills, has articulated his or her needs and concerns and is fully engaged during staff interactions. Safety plan has been established with patient, and care team, to adhere to patient goals, identify restrictions based on behavioral status, address nutrition, and determine allowed personal belongings, tools for hygiene and personal care. Determine level of activity including ambulation, level of supervision, visitors, and determine privileges based on behaviors and level of engagement by pt. SAFETY PLAN: 1. Will remain on suicide precautions. In Paper Clothes 2. Will remain in room under direct supervision of one-on-one staff at all times provided by CPSO, ANNEALER HELPER, NURSING UNIT CLERK instructional technology director. 3. May have paper cups, plates, finger foods as well as a cardboard spoon with which to eat meals. 4. Follow [facility] Management of the Admitted Behavioral Health Patient policy. 5. Comfort bath system only, shower permitted with escort at RN discretion. 6. No personal belongings-soft items permitted at RN discretion. 7. Visitors-none at this time. 8. Activities: soft cart items, music tablet, television if available, and other activities at RN discretion. 9. Bathroom privileges with escort in the ED, available in room without limitation on M/S. 10. Phone: contact limited to family at this time, via [employer] hospital phone at RN discretion. 11. Due to VOLUNTARY status, if patient wishes to leave [facility], staff will contact [facility] Crisis Screener ([phone]) and On-Call Criminal Judge ([phone]) as soon as possible. In the event of elopement, notify [facility] Police ([phone]). Patient is currently voluntarily at [facility] and seeking inpatient admission when a bed becomes available. [facility] Frontline Chief Lifestyle Officer will continue seeking placement. Please contact the Refinery Operator Reforming Unit Criminal Judge ([phone]) and [facility] Chief Lifestyle Officer ([phone]) for any needed changes in the Safety Plan. Safety plan has been provided to interdepartmental care team.
[2022-04-22 14:22] VITALS: BP 104/60; PULSE 80; TEMP 36.3; O2SAT 94
--- NOTE | 2022-04-22 15:05 | W.PM.HP.N ---
Date of service: 04/22/22 Time of Service: 15:05 Assessment and Plan Assessment and plan (1) Suicidal ideation: Status: Acute Assessment and plan: medically cleared and screened by mental health and plan is for voluntary admission for inpatient psychiatric management. no beds available so will be held here until a bed opens up. CPSO denies suicidal plan at this time, I don't' know what I would do (2) ETOH abuse: Status: Chronic Assessment and plan: dextox'd here on phenobarb. unlikely to withdraw again as he was only out of hospital a few hours and has been in protective custody overnight. cessation discussed add daily thiamine (3) Polysubstance abuse: Status: Chronic Assessment and plan: continue suboxone discussed with Dr Mack History of Present Illness History of Present Illness Chief Complaint: suicidal ideation [facility] All Active Problems (Updated 04/22/22 @ 14:48 by Isabela Haynes NP) Alcohol intoxication (Acute) Closed head injury (Acute) ETOH abuse (Chronic) Suicidal ideation (Acute) Polysubstance abuse (Chronic) Alcohol withdrawal seizure (Acute) Cerebral cavernous malformation (Chronic) Homelessness (Chronic) Head injury (Acute) Medical History Alcohol abuse Alcohol withdrawal seizure Social History Smoking/Tobacco Use Status: Current every day Tobacco Type: cigarettes Smoking risk assessment performed?: Yes Alcohol Intake: current Alcohol Intake frequency: 3 or more drinks per day Drug use: Daily Substance use type: crack/cocaine Do you feel safe at home: Yes Do you feel safe in your relationship?: Yes Meds Allergies and Home Medications Allergies Allergy/AdvReac Type Severity Reaction Status Date / Time No Known Allergies Allergy Unverified 04/22/22 09:00 Home Medications Medication Instructions Recorded Confirmed Type buprenorphine 8 mg-naloxone 2 mg 2 tab sublingual DAILY 04/13/22 04/22/22 History sublingual tablet aripiprazole 5 mg tablet 5 mg PO DAILY 04/20/22 04/22/22 History fluoxetine 40 mg capsule 40 mg PO DAILY 04/20/22 04/22/22 History lamotrigine 100 mg tablet 100 mg PO DAILY 04/20/22 04/22/22 History fluoxetine 40 mg capsule (Prozac) 40 mg PO DAILY 04/22/22 04/22/22 History quetiapine 50 mg tablet 100 mg PO DAILY 04/22/22 04/22/22 History Exam Const General: no acute distress and disheveled Nutritional Appearance: overweight Orientation: alert, awake and oriented x3 Other: lying on stretcher, minimally interactive. requesting meds for anxiety HENMT Head: normal to inspection Other: face flushed/reddened, tamanna with swollen appearance, dry flaky skin Resp Effort & Inspection: normal respiratory effort Cardio Rate: regular rate Rhythm: regular rhythm GI Inspection: normal to inspection Extrem General: normal to inspection, full ROM and no pedal edema Psych Appearance: disheveled Speech and Movement: speech and movement normal Affect: blunted Attitude: cooperative Insight: fair Judgment: poor Results Labs Labs: Laboratory Results - last 24 hr 04/22/22 04/22/22 10:30 10:30 Urine Opiates Screen Negative Urine Methadone Screen Negative Ur Barbiturates Screen Positive A Ur Tricyclics Screen Negative Ur Amphetamines Screen Negative U Benzodiazepines Scrn Negative Urine Cocaine Screen Negative Ur THC Screen Negative COVID-19 Source Nasal/Nares SARS-CoV-2 (PCR) Negative Last Vital Signs Temp 36.3 C L 04/22/22 14:22 Pulse 80 04/22/22 14:22 Resp 14 04/22/22 08:57 BP 104/60 04/22/22 14:22 Pulse Ox 94 04/22/22 14:22 PAWSS Have you Been Recently Intoxicated or Drunk Within the Last 30 days?: Yes Have you Ever Experienced Previous Episodes of Alcohol Withdrawal?: Yes Have you ever Experienced Withdrawal Seizures?: Yes Have you ever Experienced Delirium Tremens(DT)s?: Yes Have you ever undergone Alcohol Rehabilitation Treatment (i.e, inpt ot outpatient treatment programs)?: Yes Have you ever Experienced Blackouts?: Yes Have you ever Combined Alcohol with other Downers within the last 90 days?: No Have you ever Combined Alcohol with any other Substance of Abuse during the last 90 days?: No Positive Blood Alcohol level on Presentation? [PCS.BAL]: No Evidence of Increased Autonomic Activity (i.e. HR>120, tremor, sweating, agitation, nausea)?: Yes Result: 7
[2022-04-22 15:33] VITALS: RESP 17
--- NOTE | 2022-04-22 18:51 | NUR.NOTE ---
Nursing Note: RN to RN report given to MALINI Agarwal.
[2022-04-22] MEDS: hydrOXYzine HCL 25 MG TAB 50 MG PO (19:25)
--- NOTE | 2022-04-23 09:41 | PDOC.CMDIS ---
- If Service Date Differs Date of service: 04/23/22 Time of Service: 09:41 LACE Index Scoring Tool - Questions: Length of Stay (in days): 1 Acuity (Admit via E.D.?): Yes E.D. Visits: 5 - Answers: Total Score: 8 Risk of Readmission: Low Risk Care Management Discharge Reason for Hospitalization: Suicidal Ideation Discharge Plan: Edgar will transfer to [facility] via secure transport. Patient/Family Education Needs: Review discharge instructions, discuss Ask Me Three. Services Needed at Discharge: Psychiatric Facility ([facility]) - MH Services (Omit if N/A) Current MH Services: Psychiatric Inp - Disposition Disposition: [facility] via of: ([place] )
[2022-04-23] MEDS: Thiamine 100 MG TAB PO (10:27)
[2022-04-23] MEDS: QUEtiapine 100 MG TAB PO (10:27)
[2022-04-23] MEDS: FLUoxetine 20 MG CAP 40 MG PO (10:27)
[2022-04-23] MEDS: Buprenorphine/Naloxone 8 mg/2 mg FILM 2 EACH SL (10:27)
[2022-04-23] MEDS: ARIPiprazole 5 MG TAB PO (10:27)
[2022-04-23] MEDS: lamoTRIgine 100 MG TAB PO (10:28)
[2022-04-23 10:41] VITALS: BP 125/50; PULSE 70; RESP 18; TEMP 36.2; O2SAT 98
[2022-04-23] MEDS: hydrOXYzine HCL 25 MG TAB 50 MG PO ×2 (10:54→14:59)
--- NOTE | 2022-04-23 11:24 | DSE_ITS ---
Date of service: 04/23/22 Time of Service: 11:24 DS: Diagnosis Discharge Diagnosis (1) Suicidal ideation: Status: Acute (2) ETOH abuse: Status: Chronic (3) Polysubstance abuse: Status: Chronic Discharge Plan Disposition Patient Disposition: [facility] Condition: Stable Discharge Details Reason For Visit: Suicidal Ideation Admit Date/Time: 04/22/22 14:48 Admit Provider: Sedrick Mack Attending Provider: Sedrick Mack Primary Care Provider: TEMI MANDUJANO [facility] Course Hospital Course: This is a 51 year old male with history of substance abuse who is new to this area, homeless and presented to the ED multiple times for alcohol use disorder, reports of withdrawal seizures who on his last admission eloped prior to discharge after here for withdrawal again treated with phenobarbital. He presented back to the ED later that same day intoxicated, claiming he went to smoke and wanted to come back in for admission. He was medically cleared and no medical condition requiring hospitalization so he was discharged to police custody for protective custody until he was sober. He remained there overnight and in the am was reporting he was suicidal and requesting evaluation. He was screened by mental health and plan is for voluntary inpatient psychiatric management. He was admitted to med/surg on a hold until a bed is available. He has remained medically stable. He is eating and drinking and having no behavioral issues. He has been accepted at [facility] and is being transported by [facility]. discussed with Dr Mack. Home Meds and New Rx's Prescriptions: Continued fluoxetine 40 mg capsule 40 mg PO DAILY lamotrigine 100 mg tablet 100 mg PO DAILY aripiprazole 5 mg tablet 5 mg PO DAILY quetiapine 50 mg tablet 100 mg PO DAILY fluoxetine [Prozac] 40 mg Capsule 40 mg PO DAILY buprenorphine-naloxone 8-2 mg Tablet, Sublingual 2 tab SUBLINGUAL DAILY Discharge Instructions Instructions: Abuse of Alcohol (DC), Suicide Prevention (DC), Opioid Use Disorder (DC) Stand Alone Forms: Nursing Discharge Form Activity:: Activity as Tolerated Equipment/Supplies:: No Equipment Needed Diet:: As Tolerated Discharge Orders Discharge Orders: Discharge Order (Routine); Ordered 04/23/22 Ordered By: Vandana Cazares DS: Summary Time Spent with Patient providing and/or coordinating discharge services: Less than 30 minutes Status at Discharge Functional status at discharge: independent ambulation Overall status at discharge: patient is not back to baseline Mental Status: mental status grossly normal and other (depressed, suicidal, blunted affect) Speech and Movement: speech and movement normal Mood: other (depressed, suicidal, blunted affect) Affect: blunted Exam Const General: no acute distress and disheveled Nutritional Appearance: overweight Orientation: alert, awake and oriented x3 Other: lying on stretcher, minimally interactive. requesting meds for anxiety HENMT Head: normal to inspection, normocephalic and atraumatic Mouth: oral mucosae normal Other: face flushed/reddened, tamanna with swollen appearance, dry flaky skin Resp Effort & Inspection: normal respiratory effort Cardio Rate: regular rate Rhythm: regular rhythm GI Inspection: normal to inspection Palpation: soft Neuro General: patient alert, patient awake and patient oriented x3 Cognition: normal cognition Speech: speech normal Gait: normal gait Motor: muscle tone normal throughout Extrem General: normal to inspection, full ROM and no pedal edema Psych Appearance: disheveled Mental Status: mental status grossly normal and other (depressed, suicidal, blunted affect) Speech and Movement: speech and movement normal Mood: other (depressed, suicidal, blunted affect) Affect: blunted Attitude: cooperative Insight: fair Judgment: poor DS: Data Vitals/I&O Vitals and I&O: Vital Signs Temperature 36.2 C L 04/23/22 10:41 Temperature Source Tympanic 04/23/22 10:41 Pulse 70 04/23/22 10:41 Pulse Rhythm Regular 04/23/22 03:00 Respiratory Rate 18 04/23/22 10:41 Respiratory Effort Non-Labored 04/23/22 03:00 Respiratory Depth Normal 04/23/22 03:00 Respiratory Pattern Normal 04/23/22 03:00 Blood Pressure 125/50 L 04/23/22 10:41 Blood Pressure Position Supine 04/22/22 08:57 Pulse Oximetry 98 04/23/22 10:41 Oxygen Delivery Method Room Air 04/23/22 10:41 Oxygen Flow Rate 0 04/23/22 10:41 Pain Level 0 04/22/22 14:22 Comment 04/22/22 08:57 Intake & Output 04/22/22 04/22/22 04/23/22 11:59 23:59 11:59 Intake Total 400 / 400 Balance 400 / 400 Weight 87.4 kg Intake: Oral 400 / 400 Other: Comment void x1, unable to measure Voiding Methods Toilet Data Completed and Pending Labs on day of discharge: Labs from last 24 hours 04/22/22 10:30 SARS-CoV-2 (PCR) Negative PFSH All Active Problems (Updated 04/22/22 @ 14:48 by Isabela Haynes NP) Alcohol intoxication (Acute) Closed head injury (Acute) ETOH abuse (Chronic) Suicidal ideation (Acute) Polysubstance abuse (Chronic) Alcohol withdrawal seizure (Acute) Cerebral cavernous malformation (Chronic) Homelessness (Chronic) Head injury (Acute) Medical History Alcohol abuse Alcohol withdrawal seizure Social History Smoking/Tobacco Use Status: Current every day Tobacco Type: cigarettes Smoking risk assessment performed?: Yes Alcohol Intake: current Alcohol Intake frequency: 3 or more drinks per day Drug use: Daily Substance use type: crack/cocaine Do you feel safe at home: Yes Do you feel safe in your relationship?: Yes
--- NOTE | 2022-04-23 12:36 | PDOC.MHPN2 ---
Date of service: 04/23/22 Time of Service: 10:10 Mental Health Progress Note Progress Note Progress Note: Presenting Issue: Client is at the hospital waiting for voluntary treatment. Precipitating Factors Disposition * Behavior: Unremarkable *Eye Contact: Very good, direct *Mood: Stressed *Affect:Congruent with mood *Appetite: Good *Sleep(troubel falling/staying asleep): Okay Plan(please elaborate and include that physician is consulted with plan and/or placement): Clinician's Name , Title, and Signature Make sure that you are photocopying and submitting this to [facility] records Dept. to be scanned into chart.
== END 2022-04-23 15:13 | disposition short-term general hospital (02) ==
LOC: ER 15:05 → MS 15:31
PROVIDERS: Admitting Provider Internal Medicine; Emergency Provider Registered Nurse Emergency; PCP Nurse Practitioner Family; Visit Provider Internal Medicine
DX: R45.851 Suicidal ideations (principal); F10.10 Alcohol abuse, uncomplicated; F19.10 Other psychoactive substance abuse, uncomplicated; F11.20 Opioid dependence, uncomplicated; Z59.00 Homelessness unspecified; F17.210 Nicotine dependence, cigarettes, uncomplicated; Q28.3 Other malformations of cerebral vessels; Z20.822 Contact with and (suspected) exposure to COVID-19
CPT/HCPCS: 80307; 87635; 99285; 99217; 99219; G0378

== ENCOUNTER → 2023-11-09 01:24 | Outpatient (CLI) | payer MEDICAID, SELFPAY ==
--- NOTE | 2023-11-09 | DI.US_ITS ---
Exam(s) US ABDOMEN LIMITED EXAM: US ABDOMEN LIMITED CLINICAL HISTORY: CIRRHOSIS OF LIVER, K74.69 TECHNIQUE: Ultrasound abdomen performed using standard protocol. COMPARISON: US US RUQ SONOGRAM from 06/10/2023 FINDINGS: Exam somewhat limited by abundant bowel gas. There is no ascites evident. LIVER: There are no hepatic lesions evident nor dilatation of intrahepatic ducts. GALLBLADDER/BILIARY: There are no gallstones. No gallbladder wall edema nor pericholecystic fluid. The common hepatic duct isnot visualized to abundant bowel., PANCREAS: Not visualize due to abundant midline bowel gas RIGHT KIDNEY:No evidence of solid mass, calculus, nor hydronephrosis. No cortical cysts evident. IMPRESSION: 1. No evidence of cholelithiasis. CBD not able to be visualized to determine size. 2. Pancreas not seen due to overlying bowel 3. There is no ascites. DATA REPOSITORY:
== END ==
PROVIDERS: PCP Nurse Practitioner Family; Visit Provider Nurse Practitioner Adult Health
DX: K74.69 Other cirrhosis of liver (principal)
CPT/HCPCS: 76705